=== PATIENT | female | born 1950 | race Hispanic/Latino ===

== ENCOUNTER 2017-10-24 21:32 | Inpatient (IN) | payer MEDICARE ==
[~2017-10-24] VITALS: Ht 160 cm; Wt 74.9 kg
[~2017-10-24 21:32] MED LIST: DIPHENHYDRAMINE HCL INJ 50 MG/ML VIAL IM ONE; FAMOTIDINE 20 MG/2 ML VIAL IV ONE; METHYLPREDNISOLONE SOD SUCC 125 MG/2ML VIAL IV ONE
[2017-10-24] MEDS ORDERED: TARON FORTE CA1 EACH PO (22:17)
[2017-10-24] MEDS ORDERED: CARVEDILOL3.125 MG PO (22:17)
[2017-10-24] MEDS ORDERED: HUMALOG100 UNIT/1 SC ×2 (22:17)
[2017-10-24] MEDS ORDERED: VANCOMYCIN HCL1 GM IV (22:17)
[2017-10-24] MEDS ORDERED: JENUVIA PO (22:17)
[2017-10-24] MEDS ORDERED: FAMOTIDINE 20 MG/2 ML VIAL IV ONE (22:30)
[2017-10-24] MEDS ORDERED: SODIUM CHLORIDE 0.9% 1000ML 1,000 ML ONE (22:30)
[2017-10-24] MEDS ORDERED: ACETAMINOPHEN 325 MG TAB PO ONE (22:30)
[2017-10-25] VITALS (7 sets, daily range): BP systolic 105–167; BP diastolic 52–75
[2017-10-25] MEDS ORDERED: VANCOMYCIN 1GM/NS 250 ML 250 ML IV SCH (00:15)
[2017-10-25] MEDS ORDERED: ONDANSETRON HCL INJ 2 MG/ML VIAL IV PRN (00:15)
[2017-10-25] MEDS: SODIUM CHLORIDE 0.9% 1000ML 1,000 ML IV SCH ×2 (02:10→08:10)
[2017-10-25] MEDS ORDERED: CEFEPIME HCL 2 GM VIAL IV SCH (06:00)
[2017-10-25] MEDS: ACETAMINOPHEN 325 MG TAB PO PRN ×2 (06:16→21:53)
[2017-10-25] MEDS ORDERED: INSULIN LISPRO 100 UNIT/1 ML 3ML VIAL SQ SCH ×2 (09:00→21:00)
[2017-10-25] MEDS: FAMOTIDINE 20 MG TAB PO SCH ×2 (09:02→18:03)
[2017-10-25] MEDS: SITAGLIPTIN 100 MG TAB PO SCH (09:03)
[2017-10-25] MEDS: CARVEDILOL 3.125 MG TAB PO SCH (09:15)
[2017-10-25] MEDS ORDERED: DEXTROSE 50% SYRINGE 50 ML IV PRN (12:45)
--- NOTE | 2017-10-25 16:01 | Diagnostic Imaging Report ---
EXAMINATION: CHEST 2 VIEWS INDICATION: \S\CONGESTION \S\[id number] \S\1525 COMPARISON: None FINDINGS: PA and lateral views TUBES and LINES: None. LUNGS: Lungs are well inflated. Lungs are clear. There is no evidence of pneumonia or pulmonary edema. PLEURA: No pleural effusion or pneumothorax. HEART AND MEDIASTINUM: The cardiomediastinal silhouette is unremarkable. BONES AND SOFT TISSUES: No acute osseous lesion. Soft tissues are unremarkable. UPPER ABDOMEN: No free air under the diaphragm. IMPRESSION: No acute thoracic abnormality. Signed by: DR. Gallo Hernandez MD on 10/25/2017 3:58 PM
--- NOTE | 2017-10-25 16:05 | Diagnostic Imaging Report ---
HAND 3+ VIEWS LEFT HISTORY: Left index finger infection. COMPARISON: None available. FINDINGS: Bones: No acute displaced fracture. Osseous alignment is within normal limits. Joints: The joint spaces are well-maintained. Soft tissues: Diffuse soft tissue swelling of the second digit. Calcifications project over the ulnocarpal joint space. IMPRESSION: Soft tissue swelling of the index finger without radiographic evidence of osteomyelitis. Recommend correlation with hand MRI. Signed by: DR. Gallo Hernandez MD on 10/25/2017 4:01 PM
--- NOTE | 2017-10-25 16:11 | Consultation ---
DATE OF CONSULTATION: October 25, 2017 INFECTIOUS DISEASE CONSULTATION I would like to thank Dr. Locke for this interesting consult. HISTORY OF PRESENTING ILLNESS: This is a very nice 67-year-old female with past medical history of diabetes mellitus, hypertension, hyperlipidemia, well known to me from the previous hospitalization secondary to right hand osteomyelitis, septic arthritis and infected wound. The patient is status post I\T\D and multiple debridements. She is currently using IV vancomycin and ertapenem at home, and patient most recently started on a new multivitamin and on the same day, according to the daughters at the bedside, the patient started having swelling and pain of the face and itchy rash all over the body, and 1 day before the hospital admission she started having fever and chills. So, for the concerns of sepsis, the patient has been admitted into the hospital and our service has been asked to evaluate and give recommendations. PAST MEDICAL HISTORY: Hypertension, hyperlipidemia, diabetes mellitus. PAST SURGICAL HISTORY: Multiple debridements of the hand. ALLERGIES: NO KNOWN DRUG ALLERGIES. FAMILY HISTORY: Noncontributory. SOCIAL HISTORY: Patient lives at home with family. She has a very strong support system. REVIEW OF SYSTEMS: All negative except for the ones in HPI. PHYSICAL EXAMINATION VITAL SIGNS: Temperature is 99.9 with a T-max of 101.7, respiratory rate is 20, heart rate is 85, blood pressure is 108/52. GENERALLY: This is a female sitting comfortably in bed. She looks in mild distress. HEENT: Face has swollen, and the eyes are closed and there is diffuse erythema on the face. SKIN: The patient has multiple petechial rashes and excoriations. CHEST: Clear to auscultation bilaterally. HEART: S1/S2 is normal. ABDOMEN: Soft, nontender. RIGHT HAND: Does not have any open wounds. There is some swelling at the 2nd metacarpophalangeal joint. There is no drainage. NEUROLOGICALLY: Alert and oriented x3. LABS: Reviewed. ASSESSMENT AND PLAN: This is a female with past medical history of diabetes mellitus, hypertension, hyperlipidemia, who has been admitted with fever and chills. I am concerned that the patient is having allergic reaction secondary to newly started multivitamins; so, will hold it off. The patient also has a PICC line that has surrounding erythema; so, there are some concerns about line infection. The PICC line has been removed, and it has been sent for cultures. Will check blood cultures x2. Will start the patient on IV vancomycin and cefepime. Patient needs some evaluation by the surgery department for any possible drainage or chances of infection. Will continue the patient on these current antibiotics and will check CBC, CMP and vancomycin levels in the body and will follow this patient very closely with you. Thank you for letting me participate in the care of your patient. Job#: [id number] EV
[2017-10-25] MEDS: INSULIN LISPRO 100 UNIT/1 ML 3ML VIAL SQ SCH ×2 (16:30→21:54)
[2017-10-25 16:53] LABS: BASOPHILS % 0.1 % (0.0-1.0); EOSINOPHILS # (AUTO) 1.2 (0.0-0.4); EOSINOPHILS % 13.2 % (0.0-6.0); HEMOGLOBIN 9.6 g/dL (12.0-16.0); LYMPHOCYTES # (AUTO) 0.9 (1.0-3.2); LYMPHOCYTES % 9.9 % (18.0-39.1); MEAN CORPUSCULAR HEMOGLOBIN 30.2 pg (28-32); MEAN CORPUSCULAR HGB CONC 33.1 g/dL (31-35); MEAN CORPUSCULAR VOLUME 91.2 fL (81-99); MONOCYTES # (AUTO) 0.7 (0.2-0.8); MONOCYTES % 7.4 % (4.4-11.3); NEUTROPHILS # (AUTO) 6.4 (2.1-6.9); NEUTROPHILS % 68.9 % (38.7-80.0); PLATELET COUNT 183 x10e3/uL (140-360); RED BLOOD COUNT 3.18 x10e6/uL (3.6-5.1); RED CELL DISTRIBUTION WIDTH 13.2 % (11.7-14.4)
[2017-10-25] MEDS ORDERED: SODIUM CHLORIDE 0.9% 1000ML 1,000 ML IV ONE (17:00)
[2017-10-25 17:03] LABS: INR 1.39
[2017-10-25 17:04] LABS: PARTIAL THROMBOPLASTIN TIME 35.8 seconds (23.8-35.5)
[2017-10-25 17:13] LABS: ALBUMIN 2.8 g/dL (3.5-5.0); ALBUMIN/GLOBULIN RATIO 0.8 (0.8-2.0); ANION GAP 13.2 mmol/L (8-16); CREATININE, SERUM 1.8 mg/dL (0.57-1.11); POTASSIUM 4.2 mmol/L (3.5-5.1)
[2017-10-25] MEDS ORDERED: MEROPENEM 500MG 500 MG in SODIUM CHLORIDE 0.9% 50ML 50 ML IV SCH (18:00)
[2017-10-25] MEDS: MEROPENEM 500 MG VIAL IV SCH (18:10)
[2017-10-25 18:32] LABS: BILIRUBIN,URINE NEGATIVE (NEGATIVE); COLOR,URINE YELLOW (YELLOW); KETONES,URINE NEGATIVE (NEGATIVE); LEUKOCYTE ESTERASE ,URINE TRACE (NEGATIVE); NITRITE,URINE NEGATIVE (NEGATIVE); URINE UROBILINOGEN 0.2 mg/dL (0.2 - 1)
[2017-10-25 18:40] LABS: CLARITY,URINE SL CLOUDY (CLEAR); PROTEIN,URINE DIPSTICK 2+ (NEGATIVE)
[2017-10-25 18:45] LABS: AMORPHOUS SEDIMENT,URINE MODERATE (FEW); BACTERIA,URINE FEW /HPF; EPITHELIAL CELLS,URINE MODERATE /LPF; MUCUS,URINE FEW (RARE); RBC,URINE 0-5 /HPF (0-5)
[2017-10-25] MEDS: DAPTOMYCIN 400 MG in SODIUM CHLORIDE 0.9% 100 ML IV SCH (20:48)
[2017-10-26] VITALS (7 sets, daily range): BP systolic 111–180; BP diastolic 61–91
[2017-10-26] MEDS: HYDROXYZINE HCL 25 MG TAB PO PRN ×3 (00:15→18:48)
[2017-10-26] MEDS: MEROPENEM 500 MG VIAL IV SCH ×4 (00:32→18:47)
[2017-10-26 06:26] LABS: BASOPHILS % 0.2 % (0.0-1.0); EOSINOPHILS # (AUTO) 0.3 (0.0-0.4); EOSINOPHILS % 2.4 % (0.0-6.0); HEMATOCRIT 29.3 % (34.2-44.1); HEMOGLOBIN 9.6 g/dL (12.0-16.0); LYMPHOCYTES # (AUTO) 0.9 (1.0-3.2); LYMPHOCYTES % 7.7 % (18.0-39.1); MEAN CORPUSCULAR HEMOGLOBIN 30.2 pg (28-32); MEAN CORPUSCULAR HGB CONC 32.8 g/dL (31-35); MEAN CORPUSCULAR VOLUME 92.1 fL (81-99); MONOCYTES # (AUTO) 0.3 (0.2-0.8); MONOCYTES % 2.7 % (4.4-11.3); NEUTROPHILS # (AUTO) 9.6 (2.1-6.9); NEUTROPHILS % 86.2 % (38.7-80.0); PLATELET COUNT 219 x10e3/uL (140-360); RED BLOOD COUNT 3.18 x10e6/uL (3.6-5.1); RED CELL DISTRIBUTION WIDTH 13.3 % (11.7-14.4)
[2017-10-26 06:43] LABS: ALBUMIN 2.8 g/dL (3.5-5.0); ALBUMIN/GLOBULIN RATIO 0.8 (0.8-2.0); ANION GAP 13.1 mmol/L (8-16); CALCIUM 8.2 mg/dL (8.4-10.2); CREATININE, SERUM 1.63 mg/dL (0.57-1.11); POTASSIUM 4.1 mmol/L (3.5-5.1)
[2017-10-26] MEDS: CARVEDILOL 3.125 MG TAB PO SCH (10:19)
[2017-10-26] MEDS: FAMOTIDINE 20 MG TAB PO SCH ×2 (10:19→18:11)
[2017-10-26] MEDS: SITAGLIPTIN 100 MG TAB PO SCH (10:19)
[2017-10-26] MEDS: INSULIN LISPRO 100 UNIT/1 ML 3ML VIAL SQ SCH ×4 (10:21→20:33)
[2017-10-26] MEDS: DAPTOMYCIN 400 MG in SODIUM CHLORIDE 0.9% 100 ML IV SCH (18:10)
[2017-10-26] MEDS: ACETAMINOPHEN 325 MG TAB PO PRN (18:49)
[2017-10-27] VITALS (8 sets, daily range): BP systolic 128–169; BP diastolic 60–76
[2017-10-27] MEDS: MEROPENEM 500 MG VIAL IV SCH ×2 (00:04→05:30)
[2017-10-27] MEDS: ACETAMINOPHEN 325 MG TAB PO PRN (01:19)
[2017-10-27] MEDS: HYDROXYZINE HCL 25 MG TAB PO PRN (03:44)
[2017-10-27 07:16] LABS: BASOPHILS % 0.1 % (0.0-1.0); EOSINOPHILS # (AUTO) 3.3 (0.0-0.4); HEMATOCRIT 29.8 % (34.2-44.1); HEMOGLOBIN 9.9 g/dL (12.0-16.0); LYMPHOCYTES # (AUTO) 1.1 (1.0-3.2); LYMPHOCYTES % 6.2 % (18.0-39.1); MEAN CORPUSCULAR HEMOGLOBIN 30.5 pg (28-32); MEAN CORPUSCULAR HGB CONC 33.2 g/dL (31-35); MEAN CORPUSCULAR VOLUME 91.7 fL (81-99); MONOCYTES # (AUTO) 0.7 (0.2-0.8); MONOCYTES % 4.2 % (4.4-11.3); NEUTROPHILS # (AUTO) 12.1 (2.1-6.9); NEUTROPHILS % 69.8 % (38.7-80.0); PLATELET COUNT 239 x10e3/uL (140-360); RED BLOOD COUNT 3.25 x10e6/uL (3.6-5.1); RED CELL DISTRIBUTION WIDTH 13.5 % (11.7-14.4)
[2017-10-27] MEDS: FAMOTIDINE 20 MG TAB PO SCH ×2 (07:30→17:30)
[2017-10-27] MEDS: INSULIN LISPRO 100 UNIT/1 ML 3ML VIAL SQ SCH ×4 (07:30→21:30)
[2017-10-27 08:15] LABS: ALBUMIN 2.1 g/dL (3.5-5.0); ALBUMIN/GLOBULIN RATIO 0.8 (0.8-2.0); ANION GAP 12.7 mmol/L (8-16); CREATININE, SERUM 1.35 mg/dL (0.57-1.11); POTASSIUM 3.7 mmol/L (3.5-5.1)
[2017-10-27] MEDS: SITAGLIPTIN 100 MG TAB PO SCH (08:30)
--- NOTE | 2017-10-27 08:37 | Diagnostic Imaging Report ---
TECHNIQUE: Magnetic resonance imaging of the LEFT HAND was performed WITHOUT injected contrast. HISTORY: Left index finger infection, diabetes COMPARISON: Left hand radiographs October 25, 2017. FINDINGS: Motion artifact partially limits sensitivity and specificity of the exam. BONES: No focal or infiltrative bone marrow replacing abnormalities identified. No acute fracture or osteonecrosis. JOINTS: No dislocation or joint effusion. SOFT TISSUES: Moderate diffuse soft tissue edema. No fluid collections. IMPRESSION: 1. Diffuse nonspecific regional soft tissue edema, compatible with cellulitis. 2. No drainable abscess or osteomyelitis. Signed by: Dr. Gato Amador D.O., M.M.M. on 10/27/2017 8:34 AM
[2017-10-27] MEDS: CARVEDILOL 3.125 MG TAB PO SCH (09:00)
[2017-10-27 09:44] LABS: BAND NEUTROPHILS % (MANUAL) 3 %; EOSINOPHILS % (MANUAL) 15 % (0-7); LYMPHOCYTES % (MANUAL) 4 % (19-48); MONOCYTES % (MANUAL) 7 % (3.4-9.0); NEUTROPHILS % (MANUAL) 71 % (40-74)
[2017-10-27 09:46] LABS: HYPOCHROMASIA SLIGHT; POLYCHROMASIA FEW; RBC MORPHOLOGY COMMENT NORMAL
[2017-10-27 09:47] LABS: ANISOCYTOSIS SLIGHT; HOWELL-JOLLY BODIES FEW; PLATELET ESTIMATE ADEQUATE; PLATELET MORPHOLOGY COMMENT NORMAL
[2017-10-27 09:57] LABS: CALCIUM 6.5 mg/dL (8.4-10.2)
[2017-10-27] MEDS: METHYLPREDNISOLONE SOD SUCC 125 MG/2ML VIAL IV SCH (10:45)
[2017-10-27] MEDS ORDERED: DIPHENHYDRAMINE HCL INJ 50 MG/ML VIAL IV PRN (10:45)
[2017-10-27] MEDS ORDERED: MINERAL OIL/PETROLAT/GLYCERI 6OZ BTL TOP PRN (12:15)
[2017-10-27] MEDS: HYDROXYZINE HCL 25 MG TAB PO SCH ×2 (15:19→21:30)
[2017-10-27] MEDS: DIPHENHYDRAMINE HCL INJ 50 MG/ML VIAL IV SCH (21:30)
[2017-10-27] MEDS: INSULIN DETEMIR 100 UNIT/ML PEN SQ SCH (21:30)
[2017-10-28 03:53] VITALS: BP 148/67
[2017-10-28] MEDS ORDERED: DEXTROSE 50% SYRINGE 50 ML IV PRN (05:00)
[2017-10-28 06:33] LABS: BASOPHILS % 0.2 % (0.0-1.0); EOSINOPHILS # (AUTO) 0.2 (0.0-0.4); EOSINOPHILS % 0.8 % (0.0-6.0); HEMATOCRIT 27.9 % (34.2-44.1); HEMOGLOBIN 9.2 g/dL (12.0-16.0); LYMPHOCYTES # (AUTO) 1.6 (1.0-3.2); LYMPHOCYTES % 8.2 % (18.0-39.1); MEAN CORPUSCULAR HEMOGLOBIN 30.1 pg (28-32); MEAN CORPUSCULAR VOLUME 91.2 fL (81-99); MONOCYTES # (AUTO) 0.6 (0.2-0.8); MONOCYTES % 3.2 % (4.4-11.3); NEUTROPHILS # (AUTO) 17.2 (2.1-6.9); NEUTROPHILS % 86.8 % (38.7-80.0); PLATELET COUNT 239 x10e3/uL (140-360); RED BLOOD COUNT 3.06 x10e6/uL (3.6-5.1); RED CELL DISTRIBUTION WIDTH 13.5 % (11.7-14.4)
[2017-10-28 06:53] LABS: ANION GAP 14.4 mmol/L (8-16); CALCIUM 8.5 mg/dL (8.4-10.2); CREATININE, SERUM 1.64 mg/dL (0.57-1.11); POTASSIUM 4.4 mmol/L (3.5-5.1)
[2017-10-28] MEDS: INSULIN LISPRO 100 UNIT/1 ML 3ML VIAL SQ SCH ×4 (07:30→21:00)
[2017-10-28] MEDS: FAMOTIDINE 20 MG TAB PO SCH ×2 (07:30→16:30)
[2017-10-28 07:36] VITALS: BP 180/90
[2017-10-28] MEDS: INSULIN DETEMIR 100 UNIT/ML PEN SQ SCH ×2 (09:00→21:00)
[2017-10-28] MEDS: DIPHENHYDRAMINE HCL INJ 50 MG/ML VIAL IV SCH ×2 (09:00→21:00)
[2017-10-28] MEDS: METHYLPREDNISOLONE SOD SUCC 125 MG/2ML VIAL IV SCH (09:00)
[2017-10-28] MEDS: HYDROXYZINE HCL 25 MG TAB PO SCH ×3 (09:00→21:00)
[2017-10-28] MEDS: CARVEDILOL 3.125 MG TAB PO SCH (09:00)
[2017-10-28] MEDS ORDERED: METHYLPREDNISOLONE SOD SUCC 125 MG/2ML VIAL IV SCH (09:00)
[2017-10-28 11:46] VITALS: BP 200/85
--- NOTE | 2017-10-28 12:45 | Diagnostic Imaging Report ---
Procedure: Temporary central venous catheter placement. Indication: Need for short-term central venous access. Comparison: None. Discussion: The risks and benefits of the procedure were discussed with the patient. Questions were answered. An informed consent was obtained. The patient was placed supine on the angiographic table. A focused sonographic evaluation of the neck demonstrated a patent and compressible right internal jugular vein. The right neck was prepped and draped in the usual sterile fashion. Utilizing ultrasound guidance, a 21-gauge needle was inserted into the right internal jugular vein. A 0.018 inch wire was advanced centrally under fluoroscopic guidance. An access sheath was placed over the wire to secure the access. The wire was up sized to a 0.035 inch wire. A 0.035 inch wire was advanced into the right atrium and then into the inferior vena cava for stability. A single dilation was performed over the wire. A temporary central venous catheter was advanced over the wire. The wire was removed. The catheter tip of the triple lumen catheter was positioned within the right atrium. The 3 ports demonstrated proper function with aspiration and flush. The lumens were flushed with sterile saline. The lumens were infused with heparin solution. The catheter was secured to the skin with 3-0 Ethilon suture. A sterile dressing was applied. There were no complications and the patient tolerated the procedure well. The patient was transferred to the postprocedure area in stable unchanged condition for further monitoring. Impression: Successful placement of right internal jugular temporary central venous catheter utilizing ultrasound and fluoroscopic guidance. Signed by: Dr. Zaki Pratt M.D. on 10/28/2017 12:41 PM
[2017-10-28 15:23] VITALS: BP 153/65
[2017-10-28 20:00] VITALS: BP 187/72
[2017-10-28 22:06] VITALS: BP 153/65
[2017-10-29] VITALS (7 sets, daily range): BP systolic 156–185; BP diastolic 68–98
[2017-10-29] MEDS: INSULIN LISPRO 100 UNIT/1 ML 3ML VIAL SQ SCH ×4 (07:30→21:00)
[2017-10-29] MEDS: FAMOTIDINE 20 MG TAB PO SCH ×2 (09:41→16:54)
[2017-10-29] MEDS: METHYLPREDNISOLONE SOD SUCC 125 MG/2ML VIAL IV SCH (09:42)
[2017-10-29] MEDS: INSULIN DETEMIR 100 UNIT/ML PEN SQ SCH ×2 (09:42→21:00)
[2017-10-29] MEDS: DIPHENHYDRAMINE HCL INJ 50 MG/ML VIAL IV SCH ×2 (09:42→21:06)
[2017-10-29] MEDS: CARVEDILOL 3.125 MG TAB PO SCH (09:42)
[2017-10-29] MEDS: HYDROXYZINE HCL 25 MG TAB PO SCH ×3 (09:42→21:06)
[2017-10-29 09:59] LABS: BASOPHILS # (AUTO) 0.1 (0.0-0.1); BASOPHILS % 0.2 % (0.0-1.0); EOSINOPHILS # (AUTO) 4.8 (0.0-0.4); EOSINOPHILS % 16.6 % (0.0-6.0); HEMATOCRIT 28.5 % (34.2-44.1); HEMOGLOBIN 9.6 g/dL (12.0-16.0); LYMPHOCYTES # (AUTO) 2.7 (1.0-3.2); LYMPHOCYTES % 9.1 % (18.0-39.1); MEAN CORPUSCULAR HEMOGLOBIN 30.3 pg (28-32); MEAN CORPUSCULAR HGB CONC 33.7 g/dL (31-35); MEAN CORPUSCULAR VOLUME 89.9 fL (81-99); MONOCYTES # (AUTO) 1.6 (0.2-0.8); MONOCYTES % 5.3 % (4.4-11.3); NEUTROPHILS # (AUTO) 19.5 (2.1-6.9); NEUTROPHILS % 67.2 % (38.7-80.0); PLATELET COUNT 274 x10e3/uL (140-360); RED BLOOD COUNT 3.17 x10e6/uL (3.6-5.1); RED CELL DISTRIBUTION WIDTH 13.4 % (11.7-14.4)
[2017-10-29 10:11] LABS: ALBUMIN 2.9 g/dL (3.5-5.0); ALBUMIN/GLOBULIN RATIO 0.9 (0.8-2.0); CALCIUM 8.7 mg/dL (8.4-10.2); CREATININE, SERUM 1.4 mg/dL (0.57-1.11)
[2017-10-29 10:19] LABS: BAND NEUTROPHILS % (MANUAL) 1 %; EOSINOPHILS % (MANUAL) 16 % (0-7); LYMPHOCYTES % (MANUAL) 8 % (19-48); MONOCYTES % (MANUAL) 3 % (3.4-9.0); NEUTROPHILS % (MANUAL) 72 % (40-74); PLATELET ESTIMATE ADEQUATE; PLATELET MORPHOLOGY COMMENT NORMAL; RBC MORPHOLOGY COMMENT NORMAL
[2017-10-29] MEDS: METHYLPREDNISOLONE SOD SUCC 40 MG/ML VIAL IV SCH (21:06)
[2017-10-30] VITALS (7 sets, daily range): BP systolic 162–188; BP diastolic 73–98
[2017-10-30] MEDS: DIPHENHYDRAMINE HCL INJ 50 MG/ML VIAL IV SCH ×2 (09:57→21:51)
[2017-10-30] MEDS: CARVEDILOL 3.125 MG TAB PO SCH (09:57)
[2017-10-30] MEDS: FAMOTIDINE 20 MG TAB PO SCH ×2 (09:57→17:04)
[2017-10-30] MEDS: HYDROXYZINE HCL 25 MG TAB PO SCH ×3 (09:57→21:51)
[2017-10-30] MEDS: METHYLPREDNISOLONE SOD SUCC 40 MG/ML VIAL IV SCH ×2 (09:57→21:51)
[2017-10-30] MEDS: INSULIN DETEMIR 100 UNIT/ML PEN SQ SCH ×2 (09:58→21:58)
[2017-10-30] MEDS: INSULIN LISPRO 100 UNIT/1 ML 3ML VIAL SQ SCH ×4 (09:58→21:58)
[2017-10-30 11:56] LABS: BASOPHILS % 0.1 % (0.0-1.0); EOSINOPHILS # (AUTO) 1.4 (0.0-0.4); EOSINOPHILS % 6.6 % (0.0-6.0); HEMATOCRIT 28.5 % (34.2-44.1); HEMOGLOBIN 9.5 g/dL (12.0-16.0); LYMPHOCYTES # (AUTO) 2.8 (1.0-3.2); LYMPHOCYTES % 13.6 % (18.0-39.1); MEAN CORPUSCULAR HEMOGLOBIN 30.2 pg (28-32); MEAN CORPUSCULAR HGB CONC 33.3 g/dL (31-35); MEAN CORPUSCULAR VOLUME 90.5 fL (81-99); MONOCYTES # (AUTO) 1.3 (0.2-0.8); MONOCYTES % 6.2 % (4.4-11.3); NEUTROPHILS # (AUTO) 14.7 (2.1-6.9); NEUTROPHILS % 71.4 % (38.7-80.0); PLATELET COUNT 259 x10e3/uL (140-360); RED BLOOD COUNT 3.15 x10e6/uL (3.6-5.1); RED CELL DISTRIBUTION WIDTH 13.5 % (11.7-14.4)
[2017-10-30 13:58] LABS: ANISOCYTOSIS SLIGHT; EOSINOPHILS % (MANUAL) 1 % (0-7); HYPOCHROMASIA MODERATE; LYMPHOCYTES % (MANUAL) 11 % (19-48); METAMYELOCYTES % (MANUAL) 1 % (0-0); MONOCYTES % (MANUAL) 10 % (3.4-9.0); MYELOCYTES % (MANUAL) 1 % (0-0); NEUTROPHILS % (MANUAL) 71 % (40-74); NUCLEATED RED BLOOD CELLS 1; PLATELET ESTIMATE ADEQUATE; PLATELET MORPHOLOGY COMMENT NORMAL; RBC MORPHOLOGY COMMENT NORMAL
[2017-10-30] MEDS: CLONIDINE HCL 0.2 MG TAB PO PRN (21:57)
[2017-10-31] VITALS: BP 197/81
[2017-10-31 04:00] VITALS: BP 180/100
[2017-10-31] MEDS: CLONIDINE HCL 0.2 MG TAB PO PRN (05:01)
[2017-10-31 07:23] LABS: BASOPHILS % 0.3 % (0.0-1.0); EOSINOPHILS # (AUTO) 1.2 (0.0-0.4); EOSINOPHILS % 8.2 % (0.0-6.0); HEMATOCRIT 28.3 % (34.2-44.1); HEMOGLOBIN 9.3 g/dL (12.0-16.0); LYMPHOCYTES # (AUTO) 2.9 (1.0-3.2); LYMPHOCYTES % 20.4 % (18.0-39.1); MEAN CORPUSCULAR HEMOGLOBIN 29.9 pg (28-32); MEAN CORPUSCULAR HGB CONC 32.9 g/dL (31-35); MONOCYTES # (AUTO) 0.8 (0.2-0.8); MONOCYTES % 5.9 % (4.4-11.3); NEUTROPHILS # (AUTO) 8.8 (2.1-6.9); PLATELET COUNT 253 x10e3/uL (140-360); RED BLOOD COUNT 3.11 x10e6/uL (3.6-5.1); RED CELL DISTRIBUTION WIDTH 13.4 % (11.7-14.4)
[2017-10-31 07:55] VITALS: BP 173/82
[2017-10-31 08:11] LABS: ANION GAP 12.9 mmol/L (8-16); CALCIUM 8.3 mg/dL (8.4-10.2); CREATININE, SERUM 1.16 mg/dL (0.57-1.11); POTASSIUM 4.9 mmol/L (3.5-5.1)
[2017-10-31 08:15] VITALS: BP 173/82
[2017-10-31] MEDS: INSULIN DETEMIR 100 UNIT/ML PEN SQ SCH (08:22)
[2017-10-31] MEDS: INSULIN LISPRO 100 UNIT/1 ML 3ML VIAL SQ SCH ×3 (08:22→16:20)
[2017-10-31] MEDS: HYDROXYZINE HCL 25 MG TAB PO SCH ×2 (08:22→16:20)
[2017-10-31] MEDS: METHYLPREDNISOLONE SOD SUCC 40 MG/ML VIAL IV SCH (08:22)
[2017-10-31] MEDS: FAMOTIDINE 20 MG TAB PO SCH ×2 (08:22→16:20)
[2017-10-31] MEDS: DIPHENHYDRAMINE HCL INJ 50 MG/ML VIAL IV SCH (08:22)
[2017-10-31] MEDS: CARVEDILOL 3.125 MG TAB PO SCH (08:22)
[2017-10-31] MEDS ORDERED: AMLODIPINE BESYLATE 5 MG TAB PO SCH (09:00)
[2017-10-31 10:22] LABS: EOSINOPHILS % (MANUAL) 11 % (0-7); LYMPHOCYTES % (MANUAL) 9 % (19-48); MONOCYTES % (MANUAL) 2 % (3.4-9.0); NEUTROPHILS % (MANUAL) 78 % (40-74); PLATELET ESTIMATE ADEQUATE; PLATELET MORPHOLOGY COMMENT NORMAL; RBC MORPHOLOGY COMMENT NORMAL
[2017-10-31 11:53] VITALS: BP 151/73
[2017-10-31 16:00] VITALS: BP 143/72
--- NOTE | 2017-10-31 16:09 | Discharge Summary ---
This is a 67-year-old female with a past medical history positive for hypertension, diabetes, hyperlipidemia. Patient is status post incision and drainage from right hand osteomyelitis. She is on IV vancomycin and ertapenem at home. Apparently she started having swelling and pain in the face and itching and rash all over 1 day before the hospital admission. Patient seems to have an allergic reaction. She is off the antibiotic right now, and Dr. Diego, infectious disease specialist, has seen the patient from the infectious disease point of view. She thinks that she is allergic to the multivitamin which she just started taking. The PICC line has been removed because of concern about infections. Patient was started on IV antibiotics, which are vancomycin and cefepime. Urine culture has been ordered. Then down the line, the antibiotic was discontinued since there was no evidence of infection in the blood as per Dr. Diego. Patient is going home today. The blood pressure was very high yesterday. We started Norvasc, and the blood pressure is much better today. She is going home today. Dr. Diego, infectious disease specialist, has released her to go home also. On the physical exam, the heart shows regular rhythm, normal S1 and S2 sounds. Lungs are clear bilaterally. Abdomen is soft. Extremities show no evidence of cyanosis, edema or trauma. On the vital signs, blood pressure is 151/73. Temperature 96.9. Heart rate 65 per minute. Respiratory rate is 18 per minute. Oxygen saturation is 97%. On blood work, BMP showed sodium 137, potassium 4.9, chloride 104, CO2 25, BUN 31, creatinine 1.16, glucose 284. CBC: White blood count 13.9, hemoglobin 9.3, hematocrit 28.3, platelet count 253,000. PT 16.0, INR 1.39, PTT 35.8. AST 25, AST 44, total bilirubin 0.4, alkaline phosphatase 70. FINAL IMPRESSION 1. Uncontrolled hypertension. 2. Allergic severe reaction apparently to vitamin. 3. Hypertension with hypertensive nephropathy. 4. Diabetes mellitus, type 2, with diabetic nephropathy. 5. Status post hand infection. Patient will continue with: 1. Carvedilol 6.25 mg daily. 2. Norvasc 5 mg daily. 3. Januvia 100 mg daily. 4. Levemir 20 units at bedtime. 5. Continue Levemir 10 units in the morning. Follow up with her primary care physician in a week. Diet: Diabetic and renal diet. JEANNA MATT MD Job#: [id number] MH
== END 2017-10-31 16:36 | disposition home or self-care (01) | DRG 314 ==
LOC: FSED 21:32 → IMCU 10-25 01:07 → MED/SURG3 10-26 20:07
PROC: 02HV33Z Insertion of Infusion Device into Superior Vena Cava, Percutaneous Approach (ICD-10-PCS; principal; 2017-10-25)
DX: T80.211A Bloodstream infection due to central venous catheter, initial encounter (principal); A41.9 Sepsis, unspecified organism; E11.21 Type 2 diabetes mellitus with diabetic nephropathy; N18.3 Chronic kidney disease, stage 3 (moderate); L03.114 Cellulitis of left upper limb; T78.3XXA Angioneurotic edema, initial encounter; T45.2X5A Adverse effect of vitamins, initial encounter; Z79.4 Long term (current) use of insulin; E11.22 Type 2 diabetes mellitus with diabetic chronic kidney disease; I12.9 Hypertensive chronic kidney disease with stage 1 through stage 4 chronic kidney disease, or unspecified chronic kidney disease; D72.829 Elevated white blood cell count, unspecified; T38.0X5A Adverse effect of glucocorticoids and synthetic analogues, initial encounter
CPT/HCPCS: 36415; 36556; 71046; 74470; 76937; 77001; 80048; 80053; 81001; 82947; 82948; 83605; 85025; 85610; 85651; 85730; 86140; 87040; 87070; 87086; 87400; 96367; 96372; 96374; 96376; 99283; C1751; J0692; J1200; J2185; J2920; J2930; J3370; J3410; J7030; J7050

== ENCOUNTER 2017-11-02 14:34 | Inpatient (IN) | payer MEDICARE ==
[~2017-11-02] VITALS: Ht 160 cm; Wt 87.1 kg
[~2017-11-02 14:34] MED LIST changes: +CARVEDILOL3.125 MG PO; -DIPHENHYDRAMINE HCL INJ 50 MG/ML VIAL IM ONE; -FAMOTIDINE 20 MG/2 ML VIAL IV ONE; +HUMALOG100 UNIT/1 SC; +JENUVIA PO; -METHYLPREDNISOLONE SOD SUCC 125 MG/2ML VIAL IV ONE; +TARON FORTE CA1 EACH PO; +VANCOMYCIN HCL1 GM IV
--- OUTSIDE RECORDS SUMMARY | 2017-11-02 14:37 | XMS REPORT ---
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 Allergies, Adverse Reactions, Alerts This patient has no known allergies or adverse reactions. Medications This patient has no known medications. Results Test Description Test Time Test Comments Text Results Atomic Results Result Comments NON-TUNNELLED CVC CATH PLACMNT [place] [address] Patient Name: SHAY MORALES MR #: [id number] : 1950 Age/Sex: 67/F Req #: [id number] [facility] Physician: CHERI ARTEAGA MD Ordered by : BRANDI DOUGLAS MD Report #: [id number] Location: [facility]/SURG Room/Bed: [facility] Procedure: [id number] IR/NON-TUNNELLED CVC CATH PLACMNT Exam Date: 10/25/17 Exam Time: 1930 REPORT STATUS: Signed Procedure: Temporary central venous catheter placement. Indication: Need for short-term central venous access. Comparison: None. Discussion: The risks and benefits of the procedure were discussed with the patient. Questions were answered. An informed consent was obtained. The patient was placed supine on the angiographic table. A focused sonographic evaluation of the neck demonstrated a patent and compressible right internal jugular vein. The right neck was prepped and draped in the usual sterile fashion. Utilizing ultrasound guidance, a 21-gauge needle was inserted into the right internal jugular vein. A 0.018 inch wire was advanced centrally under fluoroscopic guidance. An access sheath was placed over the wire to secure the access. The wire was up sized to a 0.035 inch wire. A 0.035 inch wire was advanced into the right atrium and then into the inferior vena cava for stability. A single dilation was performed over the wire. A temporary central venous catheter was advanced over the wire. The wire was removed. The catheter tip of the triple lumen catheter was positioned within the right atrium. The 3 ports demonstrated proper function with aspiration and flush. The lumens were flushed with sterile saline. The lumens were infused with heparin solution. The catheter was secured to the skin with 3-0 Ethilon suture. A sterile dressing was applied. There were no complications and the patient tolerated the procedure well. The patient was transferred to the postprocedure area in stable unchanged condition for further monitoring. Impression: Successful placement of right internal jugular temporary central venous catheter utilizing ultrasound and fluoroscopic guidance. Signed by: Dr. Denisa Nuñez M.D. on 10/28/2017 12:41 PM Dictated By: DENISA NUÑEZ MD 1241 Transcribed By: HALEIGH on 10/28/17 1241 COPY TO: BRANDI DOUGLAS MD IR CONSULT [place] [address] Patient Name: SHAY MORALES MR #: [id number] : 1950 Age/Sex: 67/F Req #: [id number] Adm Physician: CHERI ARTEAGA MD Ordered by: BRANDI DOUGLAS MD Report #: [id number] Location: MED/SURG3 Room/Bed: [facility] _ Procedure: [id number] DX/IR CONSULT Exam Date: Exam Time: REPORT STATUS: Signed Procedure: Temporary central venous catheter placement. Indication: Need for short- term central venous access. Comparison: None. Discussion: The risks and benefits of the procedure were discussed with the patient. Questions were answered. An informed consent was obtained. The patient was placed supine on the angiographic table. A focused sonographic evaluation of the neck demonstrated a patent and compressible right internal jugular vein. The right neck was prepped and draped in the usual sterile fashion. Utilizing ultrasound guidance, a 21-gauge needle was inserted into the right internal jugular vein. A 0.018 inch wire was advanced centrally under fluoroscopic guidance. An access sheath was placed over the wire to secure the access. The wire was up sized to a 0.035 inch wire. A 0.035 inch wire was advanced into the right atrium and then into the inferior vena cava for stability. A single dilation was performed over the wire. A temporary central venous catheter was advanced over the wire. The wire was removed. The catheter tip of the triple lumen catheter was positioned within the right atrium. The 3 ports demonstrated proper function with aspiration and flush. The lumens were flushed with sterile saline. The lumens were infused with heparin solution. The catheter was secured to the skin with 3-0 Ethilon suture. A sterile dressing was applied. There were no complications and the patient tolerated the procedure well. The patient was transferred to the postprocedure area in stable unchanged condition for further monitoring. Impression: Successful placement of right internal jugular temporary central venous catheter utilizing ultrasound and fluoroscopic guidance. Signed by : Dr. Denisa Nuñez M.D. on 10/28/2017 12:41 PM Dictated By: DENISA NUÑEZ MD 1241 Transcribed By: HALEIGH on 10/28/17 1241 COPY TO: BRANDI DOUGLAS MD HAND 3+ VIEWS LEFT [place] [address] Patient Name: SHAY MORALSE MR #: [id number] : 1950 Age/Sex: 67/F Req #: [id number] Adm Physician: CHERI ARTEAGA MD Ordered by: HAROON PATEL MD Report #: [id number] Location: [facility] Room/Bed: [facility] 198-1 Procedure: [id number] DX/HAND 3+ VIEWS LEFT Exam Date : 10/25/17 Exam Time: 1525 REPORT STATUS: Signed HAND 3+ VIEWS LEFT HISTORY: Left index finger infection. COMPARISON: None available. FINDINGS: Bones: No acute displaced fracture. Osseous alignment is within normal limits. Joints: The joint spaces are well-maintained. Soft tissues: Diffuse soft tissue swelling of the second digit. Calcifications project over the ulnocarpal joint space. IMPRESSION: Soft tissue swelling of the index finger without radiographic evidence of osteomyelitis. Recommend correlation with hand MRI. Signed by: DR. Gallo Sanchez MD on 10/25/2017 4:01 PM Dictated By: GALLO SANCHEZ MD 1601 COPY TO: HAROON PATEL MD MRI HAND LEFT [place] [address] Patient Name: SHAY MORALES MR #: [id number] : 1950 Age/Sex: 67/F Req #: [id number] Adm Physician: CHERI ARTEAGA MD Ordered by: HAROON PATEL MD Report #: [id number] Location: MED/SURG3 Room/Bed: 299-1 Procedure: MRI/MRI HAND LEFT WO Exam Date : Exam Time: REPORT STATUS: Signed TECHNIQUE: Magnetic resonance imaging of the LEFT HAND was performed WITHOUT injected contrast. HISTORY: Left index finger infection, diabetes COMPARISON: Left hand radiographs October 25, 2017. FINDINGS: Motion artifact partially limits sensitivity and specificity of the exam. BONES: No focal or infiltrative bone marrow replacing abnormalities identified. No acute fracture or osteonecrosis. JOINTS: No dislocation or joint effusion. SOFT TISSUES: Moderate diffuse soft tissue edema. No fluid collections. IMPRESSION: 1. Diffuse nonspecific regional soft tissue edema, compatible with cellulitis. 2. No drainable abscess or osteomyelitis. Signed by: Dr. Elisha Amador D.O., M.M.M. on 10/27/2017 8:34 AM Dictated By: ELISHA AMADOR DO 3 Transcribed By: HALEIGH on 10/27/17833 COPY TO: HAROON PATEL MD CHEST 2 [place] [address] Patient Name: SHAY MORALES MR #: [id number] : 1950 Age/Sex: 67/F Req #: [id number] Adm Physician: CHERI ARTEAGA MD Ordered by: CHERI ARTEAGA MD Report #: [id number] Location: [facility] Room/Bed: [facility] 198-1 Procedure: DX/CHEST 2 VIEWS Exam Date: Exam Time: 1525 REPORT STATUS: Signed EXAMINATION: CHEST 2 VIEWS INDICATION: COMPARISON : None FINDINGS: PA and lateral views TUBES and LINES: None. LUNGS: Lungs are well inflated. Lungs are clear. There is no evidence of pneumonia or pulmonary edema. PLEURA: No pleural effusion or pneumothorax. HEART AND MEDIASTINUM: The cardiomediastinal silhouette is unremarkable. BONES AND SOFT TISSUES: No acute osseous lesion. Soft tissues are unremarkable. UPPER ABDOMEN: No free air under the diaphragm. IMPRESSION: No acute thoracic abnormality. Signed by: DR. Gallo Sanchez MD on 10/25/2017 3:58 PM Dictated By: GALLO SANCHEZ MD 57 Transcribed By: HALEIGH on 10/25/171557 COPY TO: CHERI ARTEAGA MD FLUORO GUIDANCE [address]/REM [place] [address] Patient Name: SHAY MORALES MR #: [id number] : 1950 Age/Sex: 67/F Req #: [id number] Adm Physician: CHERI ARTEAGA MD Ordered by : BRANDI DOUGLAS MD Report #: [id number] Location: MED/SURG3 Room/Bed: [facility] Procedure: [id number] DX/FLUORO GUIDANCE [address]/REM Exam Date: 10/25/17 Exam Time: 1929 REPORT STATUS: Signed Procedure: Temporary central venous catheter placement. Indication: Need for short-term central venous access. Comparison: None. Discussion: The risks and benefits of the procedure were discussed with the patient. Questions were answered. An informed consent was obtained. The patient was placed supine on the angiographic table. A focused sonographic evaluation of the neck demonstrated a patent and compressible right internal jugular vein. The right neck was prepped and draped in the usual sterile fashion. Utilizing ultrasound guidance, a 21-gauge needle was inserted into the right internal jugular vein. A 0.018 inch wire was advanced centrally under fluoroscopic guidance. An access sheath was placed over the wire to secure the access. The wire was up sized to a 0.035 inch wire. A 0.035 inch wire was advanced into the right atrium and then into the inferior vena cava for stability. A single dilation was performed over the wire. A temporary central venous catheter was advanced over the wire. The wire was removed. The catheter tip of the triple lumen catheter was positioned within the right atrium. The 3 ports demonstrated proper function with aspiration and flush. The lumens were flushed with sterile saline. The lumens were infused with heparin solution. The catheter was secured to the skin with 3-0 Ethilon suture. A sterile dressing was applied. There were no complications and the patient tolerated the procedure well. The patient was transferred to the postprocedure area in stable unchanged condition for further monitoring. Impression: Successful placement of right internal jugular temporary central venous catheter utilizing ultrasound and fluoroscopic guidance. Signed by: Dr. Denisa Nuñez M.D. on 10/28/2017 12:41 PM Dictated By: DENISA NUÑEZ MD 1241 Transcribed By: HALEIGH on 10/28/17 1241 COPY TO: BRANDI DOUGLAS MD GUIDANCE FOR VASCULAR ACCES [place] [address] Patient Name: SHAY MORALES MR #: [id number] : 1950 Age/Sex: 67/F Req #: [id number] Adm Physician: CHERI ARTEAGA MD Ordered by : BRANDI DOUGLAS MD Report #: [id number] Location: MED/SURG3 Room/Bed: [facility] Procedure: [id number] US/US GUIDANCE FOR VASCULAR ACCES Exam Date: 10/25/17 Exam Time: 1859 REPORT STATUS: Signed Procedure: Temporary central venous catheter placement. Indication: Need for short-term central venous access. Comparison: None. Discussion: The risks and benefits of the procedure were discussed with the patient. Questions were answered. An informed consent was obtained. The patient was placed supine on the angiographic table. A focused sonographic evaluation of the neck demonstrated a patent and compressible right internal jugular vein. The right neck was prepped and draped in the usual sterile fashion. Utilizing ultrasound guidance, a 21-gauge needle was inserted into the right internal jugular vein. A 0.018 inch wire was advanced centrally under fluoroscopic guidance. An access sheath was placed over the wire to secure the access. The wire was up sized to a 0.035 inch wire. A 0.035 inch wire was advanced into the right atrium and then into the inferior vena cava for stability. A single dilation was performed over the wire. A temporary central venous catheter was advanced over the wire. The wire was removed. The catheter tip of the triple lumen catheter was positioned within the right atrium. The 3 ports demonstrated proper function with aspiration and flush. The lumens were flushed with sterile saline. The lumens were infused with heparin solution. The catheter was secured to the skin with 3-0 Ethilon suture. A sterile dressing was applied. There were no complications and the patient tolerated the procedure well. The patient was transferred to the postprocedure area in stable unchanged condition for further monitoring. Impression: Successful placement of right internal jugular temporary central venous catheter utilizing ultrasound and fluoroscopic guidance. Signed by: Dr. Denisa Nuñez M.D. on 10/28/2017 12:41 PM Dictated By: DENISA NUÑEZ MD 1241 Transcribed By: HALEIGH on 10/28/17 1241 COPY TO: BRANDI DOUGLAS MD
--- OUTSIDE RECORDS SUMMARY | 2017-11-02 14:37 | XMS REPORT | Continuity of Care Document ---
Author Author [facility] Organization [facility] Address [address] [place] [address] Phone Unavailable Care Team Providers Care Free Lance Artist Name Role Phone MICHAEL REED MD PCP Unavailable Insurance Providers Guarantor Shay Reed Address [address] [place] [address] Email [email or web address] Payer [facility] Policy Number [id number] Subscriber's Name Shay Reed Relationship 18 Self / Same As Patient Effective Date 17 [facility] [facility] Policy Number [id number] Subscriber's Name DerekShay Jorge Relationship 18 Self / Same As Patient Effective Date 17 Advance Directives Directive Response Recorded Date/Time Does the patient have an advance directive? No 10/25/17 2:00am If yes, is advance directive on file with [facility]? No 10/25/17 2:00am If not on file with [facility] will patient provide a copy? No 10/25/17 2:00am Do you have a Directive to Physician? No 10/25/17 12:23am Do you have a Medical Power of Hospitalist Program Director? No 10/25/17 12:23am Do you have an out of hospital Do Not Resuscitate Order? No 10/25/17 12:23am Do you have any special needs we should be aware of? No 10/25/17 12:23am Do you have a support person here with you today? Yes 10/25/17 12:23am Did patient receive Notice of Privacy Practices? Yes 10/25/17 12:23am Did patient receive patient rights and responsibilities? Yes 10/25/17 12:23am Problems Medical Problem Onset Date Status Bacteremia Unknown Diabetes mellitus Unknown Fever Unknown Finger infection Unknown Finger injury Unknown Hypertension Unknown PICC (peripherally inserted central catheter) removal Unknown PICC line infection Unknown Medications Current Home Medications Medication Dose Units Route Directions Days Qty Instructions Start Date Carvedilol 3.125 Mg Tablet 6.25 Mg Oral Daily 60 Tab Insulin Lispro (Humalog) 100 Unit/1 Ml Cartridge 30 Units Subcutaneously Before Breakfast Insulin Lispro (Humalog) 100 Unit/1 Ml Cartridge 25 Units Subcutaneously Bedtime Jenuvia 100 Mg Oral Daily Past Home Medications Medication Directions Ordered Status Iron Bg&Ps/Vit C/B12/Fa/Ca Thr (Salty Forte Capsule) 1 Each Capsule, Oral Daily Discontinued Vancomycin Hcl 1 Gm Vial, 1 Gm Intraven Daily Discontinued Social History Social History Problem Response Recorded Date/Time Onset Date Status Hx Psychiatric Problems Yes 10/25/2017 2:00am Not Applicable Not Applicable Hx Eating Disorder No 10/25/2017 2:00am Not Applicable Not Applicable Hx Substance Use Disorder No 10/25/2017 2:00am Not Applicable Not Applicable Hx Depression Yes 10/25/2017 2:00am Not Applicable Not Applicable Hx Alcohol Use No 10/25/2017 2:00am Not Applicable Not Applicable Hx Substance Use Treatment No 10/25/2017 2:00am Not Applicable Not Applicable Hx Physical Abuse No 10/25/2017 2:00am Not Applicable Not Applicable Smoking Status Start Date Stop Date Never Smoker Hospital Discharge Instructions No hospital discharge instruction information available. Plan of Care Discharge Date 10/31/17 4:36pm Disposition HOME, SELF-CARE Instructions/Education Provided Rash - Nonspecific Prescriptions See Medication Section Additional Instructions/Education FOLLOW UP WITH DR. DOUGLAS IN 1 WEEK. Functional Status Query Response Date Recorded Assistive Devices None October 25, 2017 2:00am Ambulation Ability Independent October 25, 2017 2:00am Toileting Ability Minimum Assistance October 31, 2017 1:58pm Allergies, Adverse Reactions, Alerts No known allergies. Immunizations No immunization information available. Vital Signs Acute Vital Signs Vital Response Date/Time Temperature (Fahrenheit) 96.8 degrees F (97.6 - 99.5) 10/31/2017 4:00pm Pulse Pulse Rate (adult) 73 bpm (60 - 90) 10/31/2017 4:00pm Respiratory Rate 18 bpm (12 - 24) 10/31/2017 4:00pm Blood Pressure 143/72 mm Hg 10/31/2017 4:00pm Height 5 ft 3 in 10/25/2017 2:00am Weight 165.13 lb 10/31/2017 12:37am Body Mass Index 29.3 kg/m^2 10/31/2017 12:37am Results Laboratory Results Test Name Result Units Flags Reference Collection Date/Time Result Date/ Time Comments White Blood Count 13.97 x10e3/uL H 4.8-10.8 10/31/2017 6:20am 2017 7:25am Red Blood Count 3.11 x10e6/uL L 3.6-5.1 10/31/2017 6:2010/31/2017 7: 25am Hemoglobin 9.3 g/dL L 12.0-16.0 10/31/2017 6:2010/31/2017 7:25am Hematocrit 28.3 % L 34.2-44.1 10/31/2017 6:10/31/2017 7:25am Mean Corpuscular Volume 91.0 fL 81-99 10/31/2017 6:2010/31/2017 7: 25am Mean Corpuscular Hemoglobin 29.9 pg 28-32 10/31/2017 6:2010/31/2017 7:25am Mean Corpuscular Hemoglobin Concent 32.9 g/dL 31-35 10/31/2017 6:2010/31/2017 7:25am Red Cell Distribution Width 13.4 % 11.7-14.4 10/31/2017 6:202017 7:25am Platelet Count 253 x10e3/uL 140-360 10/31/2017 6:2010/31/2017 7: 25am Neutrophils (%) (Auto) 63.0 % 38.7-80.0 10/31/2017 6:2010/31/2017 7: 25am Lymphocytes (%) (Auto) 20.4 % 18.0-39.1 10/31/2017 6:20am 10/31/2017 7: 25am Monocytes (%) (Auto) 5.9 % 4.4-11.3 10/31/2017 6:20am 10/31/2017 7: 25am Eosinophils (%) (Auto) 8.2 % H 0.0-6.0 10/31/2017 6:10/31/2017 7: 25am Basophils (%) (Auto) 0.3 % 0.0-1.0 10/31/2017 6:10/31/2017 7:25am IM GRANULOCYTES % 2.2 % H 0.0-1.0 10/31/2017 6:10/31/2017 7:25am Neutrophils # (Auto) 8.8 H 2.1-6.9 10/31/2017 6:10/31/2017 7: 25am Lymphocytes # (Auto) 2.9 1.0-3.2 10/31/2017 6:10/31/2017 7:25am Monocytes # (Auto) 0.8 0.2-0.8 10/31/2017 6:10/31/2017 7:25am Eosinophils # (Auto) 1.2 H 0.0-0.4 10/31/2017 6:10/31/2017 7: 25am Basophils # (Auto) 0.0 0.0-0.1 10/31/2017 6:10/31/2017 7:25am Absolute Immature Granulocyte (auto 0.31 x10e3/uL H 0-0.1 10/31/2017 6: 10/31/2017 7:25am Differential Total Cells Counted 100 10/31/2017 6:am 10/31/2017 10:22am Neutrophils % (Manual) 78 % H 40-74 10/31/2017 6:10/31/2017 10: 22am Band Neutrophils % 1 % 10/29/2017 9:40am 10/29/2017 10:19am Lymphocytes % (Manual) 9 % L 19-48 10/31/2017 6:20am 10/31/2017 10:22am Monocytes % (Manual) 2 % L 3.4-9.0 10/31/2017 6:20am 10/31/2017 10:22am Eosinophils % (Manual) 11 % H 0-7 10/31/2017 6:20am 10/31/2017 10:22am Metamyelocytes % 1 % H 0-0 10/30/2017 11:49am 10/30/2017 1:59pm Myelocytes % 1 % H 0-0 10/30/2017 11:49am 10/30/2017 1:59pm Reactive Lymphocytes 5 10/30/2017 11:49am 10/30/2017 1:59pm Nucleated Red Blood Cells 1 10/30/2017 11:49am 10/30/2017 1:59pm Platelet Estimate ADEQUATE 10/31/2017 6:20am 10/31/2017 10:22am Platelet Morphology Comment NORMAL 10/31/2017 6:20am 10/31/2017 10: 22am Polychromasia FEW 10/27/2017 5:00am 10/27/2017 9:47am Hypochromasia MODERATE 10/30/2017 11:49am 10/30/2017 1:59pm Anisocytosis SLIGHT 10/30/2017 11:49am 10/30/2017 1:59pm Baez-Van Alstyne Bodies FEW 10/27/2017 5:00am 10/27/2017 9:47am Red Cell Morphology Comment NORMAL 10/31/2017 6:20am 10/31/2017 10: 22am Erythrocyte Sedimentation Rate 23 mm/hr H 0-20 10/27/2017 12:25pm 2017 1:17pm Prothrombin Time 16.0 seconds H 11.9-14.5 10/25/2017 4:40pm 10/25/2017 5 :04pm Prothromb Time International Ratio 1.39 10/25/2017 4:40pm 2017 5:04pm Oral Anticoagulant Therapy INR Values: 1. Low Intensity Therapy 1.5 - 2.0 2. Moderate Intensity Therapy 2.0 - 3.0 3. High Intensity Therapy(1) 2.5 - 3.5 4. High Intensity Therapy(2) 3.0 - 4.0 5. Panic Value INR > 5.0 Activated Partial Thromboplast Time 35.8 seconds H 23.8-35.5 10/25/2017 4 :40pm 10/25/2017 5:05pm Urine Color YELLOW YELLOW 10/25/2017 6:10/25/2017 6:40pm Urine Clarity SL CLOUDY CLEAR 10/25/2017 6:10/25/2017 6:40pm Urine Specific Sharon 1.020 1.010-1.025 10/25/2017 6:pm 2017 6:40pm Urine pH 5 5 - 7 10/25/2017 6:pm 10/25/2017 6:40pm Urine Leukocyte Esterase TRACE H NEGATIVE 10/25/2017 6:2017 6:40pm Urine Nitrite NEGATIVE NEGATIVE 10/25/2017 6:pm 10/25/2017 6:40pm Urine Protein 2+ H NEGATIVE 10/25/2017 6:pm 10/25/2017 6:40pm Urine Glucose (UA) NEGATIVE NEGATIVE 10/25/2017 6:pm 10/25/2017 6: 40pm Urine Ketones NEGATIVE NEGATIVE 10/25/2017 6:pm 10/25/2017 6:40pm Urine Urobilinogen 0.2 mg/dL 0.2 - 1 10/25/2017 6:pm 10/25/2017 6: 40pm Urine Bilirubin NEGATIVE NEGATIVE 10/25/2017 6:10/25/2017 6: 40pm Urine Blood 1+ H NEGATIVE 10/25/2017 6:pm 10/25/2017 6:40pm Urine WBC 6-10 /HPF H 0-5 10/25/2017 6:pm 10/25/2017 6:45pm Urine RBC 0-5 /HPF 0-5 10/25/2017 6:10/25/2017 6:45pm Urine Bacteria FEW /HPF NONE 10/25/2017 6:pm 10/25/2017 6:45pm Urine Epithelial Cells MODERATE /LPF NONE 10/25/2017 6:pm 10/25/2017 6:45pm Urine Amorphous Sediment MODERATE H FEW 10/25/2017 6:pm 10/25/2017 6 :45pm Urine Mucus FEW H RARE 10/25/2017 6:26pm 10/25/2017 6:45pm Sodium Level 137 mmol/L 136-145 10/31/2017 6:20am 10/31/2017 8:22am Potassium Level 4.9 mmol/L # 3.5-5.1 10/31/2017 6:2010/31/2017 8:22am Chloride Level 104 mmol/L 98-107 10/31/2017 6:2010/31/2017 8:22am Carbon Dioxide Level 25 mmol/L 22-29 10/31/2017 6:2010/31/2017 8: 22am Anion Gap 12.9 mmol/L 8-16 10/31/2017 6:2010/31/2017 8:22am Blood Urea Nitrogen 31 mg/dL H 7-10/31/2017 6:2010/31/2017 8:22am Creatinine 1.16 mg/dL H 0.57-1.11 10/31/2017 6:2010/31/2017 8:22am BUN/Creatinine Ratio 27 H 6-10/31/2017 6:10/31/2017 8:22am Estimat Glomerular Filtration Rate 47 ML/MIN L 60- 10/31/2017 6:20 8:22am Ranges were taken from the National Kidney Disease Education Program and the National Kid[employer] Foundation literature. Reference ranges: 60 or greater: Normal 16-59 (for 3 consecutive months): Chronic kidney disease 15 or less: Kidney failure Glucose Level 284 mg/dL H 74-118 10/31/2017 6:2010/31/2017 8:22am Calcium Level 8.3 mg/dL L 8.4-10.2 10/31/2017 6:10/31/2017 8:22am Bedside Glucose 254 mg/dL H 70-120 10/31/2017 3:44pm 10/31/2017 3:52pm Meter ID: [id number] Lactic Acid Level 15.9 MG/DL 4.5-19.8 10/25/2017 4:40pm 10/25/2017 5: 10pm Total Bilirubin 0.4 mg/dL 0.2-1.2 10/29/2017 9:40am 10/29/2017 10:11am Aspartate Amino Transf (AST/SGOT) 25 IU/L 5-34 10/29/2017 9:40am 2017 10:11am Alanine Aminotransferase (ALT/SGPT) 44 IU/L 0-55 10/29/2017 9:40am 10:11am Total Protein 6.3 g/dL L 6.5-8.1 10/29/2017 9:40am 10/29/2017 10:11am Albumin 2.9 g/dL L 3.5-5.0 10/29/2017 9:40am 10/29/2017 10:11am Globulin 3.4 g/dL 2.3-3.5 10/29/2017 9:40am 10/29/2017 10:11am Albumin/Globulin Ratio 0.9 0.8-2.0 10/29/2017 9:40am 10/29/2017 10: 11am Alkaline Phosphatase 70 IU/L 40-150 10/29/2017 9:40am 10/29/2017 10: 11am C-Reactive Protein 25.1 mg/L H 0.0-4.9 10/27/2017 12:25pm 10/28/2017 8: 41am Performed at: - [facility] [id number] Lead Tinner: Ehsan Hughes MD, Phone: [phone] Microbiology Results Procedure Source Organism/Result Collection Date/Time Result Date/Time Result Status Blood Culture Blood NO GROWTH AFTER 5 DAYS, FINAL REPORT 10/25/2017 4:40pm 10/30/2017 4:48pm Final [place] [id number] Patient Name: SHAY REED MR # :[id number] : 1950 Age/Sex: 67/F Admit Physician: CHERI ARTEAGA MD Admit Date: 10/25/17 Location/Room/Bed: MED/SURG3- 299-1 Discharge Date: Report: Discharge Summary This is a 67-year-old female with a past medical history positive for hypertension, diabetes, hyperlipidemia. Patient is status post incision and drainage from right hand osteomyelitis. She is on IV vancomycin and ertapenem at home. Apparently she started having swelling and pain in the face and itching and rash all over 1 day before the hospital admission. Patient seems to have an allergic reaction. She is off the antibiotic right now, and Dr. Douglas, infectious disease specialist, has seen the patient from the infectious disease point of view. She thinks that she is allergic to the multivitamin which she just started taking. The PICC line has been removed because of concern about infections. Patient was started on IV antibiotics, which are vancomycin and cefepime. Urine culture has been ordered. Then down the line, the antibiotic was discontinued since there was no evidence of infection in the blood as per Dr. Douglas. Patient is going home today. The blood pressure was very high yesterday. We started Norvasc, and the blood pressure is much better today. She is going home today. Dr. Douglas, infectious disease specialist, has released her to go home also. On the physical exam, the heart shows regular rhythm, normal S1 and S2 sounds. Lungs are clear bilaterally. Abdomen is soft. Extremities show no evidence of cyanosis, edema or trauma. On the vital signs, blood pressure is 151/73. Temperature 96.9. Heart rate 65 per minute. Respiratory rate is 18 per minute. Oxygen saturation is 97%. On blood work, BMP showed sodium 137, potassium 4.9, chloride 104, CO2 25, BUN 31, creatinine 1.16, glucose 284. CBC: White blood count 13.9, hemoglobin 9.3, hematocrit 28.3, platelet count 253,000. PT 16.0, INR 1.39, PTT 35.8. AST 25, AST 44, total bilirubin 0.4, alkaline phosphatase 70. FINAL IMPRESSION 1. Uncontrolled hypertension. 2. Allergic severe reaction apparently to vitamin. 3. Hypertension with hypertensive nephropathy. 4. Diabetes mellitus, type 2, with diabetic nephropathy. 5. Status post hand infection. Patient will continue with: 1. Carvedilol 6.25 mg daily. 2. Norvasc 5 mg daily. 3. Januvia 100 mg daily. 4. Levemir 20 units at bedtime. 5. Continue Levemir 10 units in the morning. Follow up with her primary care physician in a week. Diet: Diabetic and renal diet. JEANNA MATT MD Job#: [id number] MH Dictated By: JEANNA MATT MD Transcribed By: EDS on 10/31/17 <Electronically signed by JEANNA MATT MD>10/31/17 1611 Procedures Procedure Status Date Provider(s) X-ray of chest, two views Active 10/25/17 CHERI ARTEAGA MD MRI upper extremity w/o dye Active 10/25/17 HAROON PATEL MD Ultrasound guidance for vascular access Active 10/25/17 BRANDI DOUGLAS MD Encounters Encounter Location Arrival/Admit Date Discharge/Depart Date Attending Provider Discharged Inpatient [facility] 10/25/17 1:07am 10/31/17 4:36pm CHERI ARTEAGA MD
[2017-11-02] MEDS ORDERED: SODIUM CHLORIDE 0.9% 1000ML 1,000 ML IV STA ×2 (15:08→21:31)
[2017-11-02 15:47] LABS: BASOPHILS # (AUTO) 0.1 (0.0-0.1); BASOPHILS % 0.3 % (0.0-1.0); EOSINOPHILS # (AUTO) 12.3 (0.0-0.4); EOSINOPHILS % 38.7 % (0.0-6.0); HEMATOCRIT 34.2 % (34.2-44.1); HEMOGLOBIN 11.4 g/dL (12.0-16.0); LYMPHOCYTES # (AUTO) 4.1 (1.0-3.2); LYMPHOCYTES % 12.8 % (18.0-39.1); MEAN CORPUSCULAR HEMOGLOBIN 30.2 pg (28-32); MEAN CORPUSCULAR HGB CONC 33.3 g/dL (31-35); MEAN CORPUSCULAR VOLUME 90.7 fL (81-99); MONOCYTES # (AUTO) 0.7 (0.2-0.8); MONOCYTES % 2.3 % (4.4-11.3); NEUTROPHILS # (AUTO) 14.3 (2.1-6.9); NEUTROPHILS % 45.1 % (38.7-80.0); PLATELET COUNT 248 x10e3/uL (140-360); RED BLOOD COUNT 3.77 x10e6/uL (3.6-5.1); RED CELL DISTRIBUTION WIDTH 13.5 % (11.7-14.4)
[2017-11-02 16:02] LABS: ALBUMIN 2.9 g/dL (3.5-5.0); ALBUMIN/GLOBULIN RATIO 0.9 (0.8-2.0); ANION GAP 16.6 mmol/L (8-16); CREATININE, SERUM 2.3 mg/dL (0.57-1.11); POTASSIUM 4.6 mmol/L (3.5-5.1)
--- NOTE | 2017-11-02 16:36 | Diagnostic Imaging Report ---
Examination: CT BRAIN WITHOUT CONTRAST History:Fever. Lethargy. Slurred speech Comparison studies:None Technique: Axial images were obtained from the skull base to the vertex. Coronal and sagittal images reconstructed from the axial data. Intravenous contrast: None Findings: Scalp: No abnormalities. Bones: No fractures, blastic or lytic lesions. Brain sulci: Appropriate for age. Ventricles: Normal in size and configuration. No hydrocephalus. Extra-axial space: No abnormalities. Parenchyma: There are subtle patchy areas of hypoattenuation in the periventricular and subcortical white matter, nonspecific. No masses, hemorrhage, or acute or chronic cortical based vascular insults. Sellar/suprasellar region: No abnormalities. Craniocervical junction: Patent foramen magnum. No Chiari one malformation. Incidental findings: Atherosclerotic calcification of the cavernous and supraclinoid internal carotid arteries. Surgically treated right globe with hyperdense material. Impression: 1. No acute intracranial abnormalities. 2. Mild chronic microvascular ischemic change. Signed by: Dr. Zoë Muir M.D. on 11/02/2017 4:33 PM
[2017-11-02] MEDS ORDERED: PIPER-TAZ 3.375 GM 50 ML IV STA (16:44)
[2017-11-02] MEDS ORDERED: SODIUM CHLORIDE 0.9% 100 ML 100 ML IV ONE (16:45)
--- NOTE | 2017-11-02 17:09 | Diagnostic Imaging Report ---
EXAM: CT Chest WITHOUT contrast 11/02/2017 3:08 PM INDICATION: Fever COMPARISON: Chest radiograph from 10/25/2017 TECHNIQUE: Chest was scanned utilizing a multidetector helical scanner from the lung apex through the level of the adrenal glands without IV contrast. Coronal and sagittal reformations were obtained. Routine protocol was performed. IV CONTRAST: None RADIATION DOSE: Total DLP: 461.33 mGy*cm Estimated effective dose: (DLP x 0.014 x size factor) mSv COMPLICATIONS: None FINDINGS: LINES/ TUBES: None. LUNGS AND AIRWAYS: 5 mm groundglass nodule in the right lung base (series 3, image 29). There are mild scarlike opacities in the right lower lobe. No focal consolidation. The airways are normal. PLEURA: The pleural spaces are clear. HEART AND MEDIASTINUM:No mediastinal or hilar lymphadenopathy. There are mildly enlarged bilateral axillary lymph nodes which measure up to 1.2 cm. The heart is normal in size. No pericardial effusion. Atherosclerotic calcifications of the coronary arteries. The visualized thyroid gland is normal. UPPER ABDOMEN: Limited evaluation of the upper abdomen. There is a 1.3 cm low-attenuation left adrenal nodule (series 2, image 50) BONES: Multilevel degenerative changes of the thoracic spine. SOFT TISSUES: Unremarkable. IMPRESSION: 1. No specific findings to explain the patient's symptoms. 2. 5 mm groundglass nodule in the right lung base. Consider follow-up CT in 3 months to ensure resolution. 3. Mildly enlarged bilateral axillary lymph nodes, measuring up to 1.2 cm. These are nonspecific. 4. 1.3 cm nodule in the left adrenal gland is consistent with a benign adenoma. Brandon Cardenas MD Signed by: Dr. Brandon Cardenas M.D. on 11/02/2017 5:05 PM
--- NOTE | 2017-11-02 17:16 | Diagnostic Imaging Report ---
EXAMINATION: CHEST SINGLE (PORTABLE) 11/02/2017 3:08 PM COMPARISON: 10/25/2017 INDICATION: Fever DISCUSSION: LINES: None. LUNGS: The lungs are well inflated and clear. No pneumonia or pulmonary edema. PLEURA: No pleural effusion or pneumothorax. HEART AND MEDIASTINUM: The cardiomediastinal silhouette is unremarkable. BONES AND SOFT TISSUES: No acute osseous lesion. The soft tissues are normal. IMPRESSION: No acute cardiopulmonary disease. Brandon Cardenas MD Signed by: Dr. Brandon Cardenas M.D. on 11/02/2017 5:13 PM
[2017-11-02] MEDS ORDERED: SODIUM CHLORIDE 0.9% 1000ML 1,000 ML IV ONE (18:45)
[2017-11-02 18:54] LABS: EOSINOPHILS % (MANUAL) 37 % (0-7); LYMPHOCYTES % (MANUAL) 10 % (19-48); MONOCYTES % (MANUAL) 8 % (3.4-9.0); NEUTROPHILS % (MANUAL) 45 % (40-74)
[2017-11-02 18:55] LABS: PLATELET ESTIMATE ADEQUATE; PLATELET MORPHOLOGY COMMENT NORMAL; RBC MORPHOLOGY COMMENT NORMAL
[2017-11-02 19:44] LABS: BILIRUBIN,URINE NEGATIVE (NEGATIVE); KETONES,URINE NEGATIVE (NEGATIVE); LEUKOCYTE ESTERASE ,URINE TRACE (NEGATIVE); NITRITE,URINE NEGATIVE (NEGATIVE); URINE UROBILINOGEN 0.2 mg/dL (0.2 - 1)
[2017-11-02 19:47] LABS: CLARITY,URINE HAZY (CLEAR); COLOR,URINE YELLOW (YELLOW); PROTEIN,URINE DIPSTICK 2+ (NEGATIVE)
[2017-11-02 19:56] LABS: BACTERIA,URINE FEW /HPF; EPITHELIAL CELLS,URINE FEW /LPF; RBC,URINE 0-5 /HPF (0-5)
[2017-11-02] MEDS: SODIUM CHLORIDE 0.9% 1000ML 1,000 ML IV SCH (20:39)
[2017-11-02] MEDS ORDERED: SODIUM CHLORIDE 0.9% 1000ML 1,000 ML ONE (21:27)
[2017-11-02] MEDS ORDERED: ACETAMINOPHEN 1000 MG/100 ML 100 ML IV ONE (21:27)
[2017-11-02] MEDS: ACETAMINOPHEN 1000 MG/100 ML IV PRN (21:45)
[2017-11-02] MEDS ORDERED: DEXTROSE 50% SYRINGE 50 ML IV PRN (22:00)
[2017-11-02] MEDS ORDERED: VANCOMYCIN 1GM/NS 250 ML 250 ML IV SCH (23:00)
[2017-11-02] MEDS ORDERED: MEROPENEM 1 GM VIAL ONE (23:55)
[2017-11-03] MEDS ORDERED: PIPER-TAZ 3.375 GM 50 ML IV SCH
[2017-11-03] MEDS: ACETAMINOPHEN 1000 MG/100 ML IV PRN ×4 (04:41→21:22)
[2017-11-03] MEDS: SODIUM CHLORIDE 0.9% 1000ML 1,000 ML IV SCH ×3 (04:44→19:31)
[2017-11-03 06:10] LABS: BASOPHILS # (AUTO) 0.1 (0.0-0.1); BASOPHILS % 0.3 % (0.0-1.0); EOSINOPHILS # (AUTO) 11.1 (0.0-0.4); EOSINOPHILS % 41.6 % (0.0-6.0); HEMOGLOBIN 9.6 g/dL (12.0-16.0); LYMPHOCYTES # (AUTO) 2.9 (1.0-3.2); LYMPHOCYTES % 10.7 % (18.0-39.1); MEAN CORPUSCULAR HEMOGLOBIN 30.3 pg (28-32); MEAN CORPUSCULAR HGB CONC 33.1 g/dL (31-35); MEAN CORPUSCULAR VOLUME 91.5 fL (81-99); MONOCYTES # (AUTO) 0.7 (0.2-0.8); MONOCYTES % 2.7 % (4.4-11.3); NEUTROPHILS # (AUTO) 11.8 (2.1-6.9); NEUTROPHILS % 44.1 % (38.7-80.0); PLATELET COUNT 204 x10e3/uL (140-360); RED BLOOD COUNT 3.17 x10e6/uL (3.6-5.1); RED CELL DISTRIBUTION WIDTH 13.5 % (11.7-14.4)
[2017-11-03 06:36] LABS: ANION GAP 12.5 mmol/L (8-16); CREATININE, SERUM 1.78 mg/dL (0.57-1.11); POTASSIUM 4.5 mmol/L (3.5-5.1)
[2017-11-03] MEDS: INSULIN REGULAR, HUMAN 100 UNIT/1 ML 3ML VIAL SQ SCH ×4 (07:50→21:20)
[2017-11-03 07:51] LABS: EOSINOPHILS % (MANUAL) 36 % (0-7); LYMPHOCYTES % (MANUAL) 10 % (19-48); MONOCYTES % (MANUAL) 2 % (3.4-9.0); NEUTROPHILS % (MANUAL) 52 % (40-74)
[2017-11-03 07:52] LABS: PLATELET ESTIMATE ADEQUATE; PLATELET MORPHOLOGY COMMENT NORMAL; RBC MORPHOLOGY COMMENT NORMAL
[2017-11-03 07:53] LABS: ANISOCYTOSIS SLIGHT; HYPOCHROMASIA SLIGHT
[2017-11-03 07:56] LABS: POIKILOCYTOSIS SLIGHT
[2017-11-03] MEDS ORDERED: DAPTOMYCIN IV SCH ×2 (08:00)
[2017-11-03] MEDS ORDERED: MEROPENEM 1GRAM 1 GM in SODIUM CHLORIDE 0.9% 100 ML 100 ML IV SCH ×3 (08:00)
[2017-11-03] MEDS ORDERED: SODIUM CHLORIDE 0.9% IV SCH (08:00)
[2017-11-03] MEDS ORDERED: DAPTOMYCIN 300 MG in SODIUM CHLORIDE 0.9% 100 ML IV SCH (08:00)
[2017-11-03] MEDS ORDERED: SODIUM CHLORIDE IV SCH (08:00)
[2017-11-03] MEDS: MEROPENEM 1 GM VIAL IV SCH ×2 (08:20→17:45)
[2017-11-03] MEDS: SODIUM CHLORIDE 0.9% IV SCH (08:30)
[2017-11-03] MEDS: DAPTOMYCIN IV SCH (08:30)
[2017-11-03] MEDS ORDERED: IBUPROFEN 200 MG TAB PO STA (09:41)
[2017-11-03 21:04] VITALS: BP 156/61
[2017-11-04] VITALS (8 sets, daily range): BP systolic 117–168; BP diastolic 52–67
[2017-11-04] MEDS: MEROPENEM 1 GM VIAL IV SCH ×3 (01:42→17:01)
[2017-11-04] MEDS: SODIUM CHLORIDE 0.9% 1000ML 1,000 ML IV SCH ×3 (02:30→17:30)
[2017-11-04] MEDS: ACETAMINOPHEN 325 MG TAB PO PRN ×2 (06:16→14:34)
[2017-11-04] MEDS: INSULIN REGULAR, HUMAN 100 UNIT/1 ML 3ML VIAL SQ SCH ×4 (07:17→21:48)
[2017-11-04] MEDS: CARVEDILOL 3.125 MG TAB PO SCH ×2 (08:41→17:02)
[2017-11-04] MEDS: HYDROXYZINE HCL 10 MG TAB PO SCH ×3 (08:41→21:47)
[2017-11-04] MEDS: SODIUM CHLORIDE 0.9% IV SCH (10:51)
[2017-11-04] MEDS: DAPTOMYCIN IV SCH (10:51)
[2017-11-04] MEDS: VANCOMYCIN 250MG/5ML ORAL SOLN PO SCH ×2 (13:30→17:39)
[2017-11-04] MEDS: INSULIN LISPRO 100 UNIT/1 ML 3ML VIAL SQ SCH (16:30)
[2017-11-04] MEDS: DIPHENOXYLATE/ATROPINE TAB PO PRN (17:02)
[2017-11-04] MEDS ORDERED: INSULIN LISPRO 25 UNIT SC SCH (21:00)
[2017-11-04] MEDS: METHYLPREDNISOLONE SOD SUCC 40 MG/ML VIAL IV SCH (21:47)
[2017-11-05] VITALS (7 sets, daily range): BP systolic 115–166; BP diastolic 52–76
[2017-11-05] MEDS: VANCOMYCIN 250MG/5ML ORAL SOLN PO SCH ×4 (00:02→19:01)
[2017-11-05] MEDS: ACETAMINOPHEN 325 MG TAB PO PRN (00:28)
[2017-11-05] MEDS: MEROPENEM 1 GM VIAL IV SCH ×3 (01:18→19:01)
[2017-11-05] MEDS: SODIUM CHLORIDE 0.9% 1000ML 1,000 ML IV SCH ×3 (01:18→20:50)
[2017-11-05 07:22] LABS: BASOPHILS % 0.3 % (0.0-1.0); EOSINOPHILS # (AUTO) 0.3 (0.0-0.4); EOSINOPHILS % 2.4 % (0.0-6.0); HEMATOCRIT 26.3 % (34.2-44.1); HEMOGLOBIN 8.6 g/dL (12.0-16.0); LYMPHOCYTES # (AUTO) 2.6 (1.0-3.2); LYMPHOCYTES % 21.9 % (18.0-39.1); MEAN CORPUSCULAR HEMOGLOBIN 30.2 pg (28-32); MEAN CORPUSCULAR HGB CONC 32.7 g/dL (31-35); MEAN CORPUSCULAR VOLUME 92.3 fL (81-99); MONOCYTES # (AUTO) 0.2 (0.2-0.8); MONOCYTES % 1.3 % (4.4-11.3); NEUTROPHILS # (AUTO) 8.6 (2.1-6.9); NEUTROPHILS % 73.4 % (38.7-80.0); PLATELET COUNT 196 x10e3/uL (140-360); RED BLOOD COUNT 2.85 x10e6/uL (3.6-5.1)
[2017-11-05] MEDS: INSULIN REGULAR, HUMAN 100 UNIT/1 ML 3ML VIAL SQ SCH ×4 (07:30→20:50)
[2017-11-05] MEDS: INSULIN LISPRO 100 UNIT/1 ML 3ML VIAL SQ SCH ×2 (07:30→16:30)
[2017-11-05 07:46] LABS: CALCIUM 7.5 mg/dL (8.4-10.2); CREATININE, SERUM 1.49 mg/dL (0.57-1.11)
[2017-11-05 09:00] LABS: PLATELET ESTIMATE ADEQUATE; PLATELET MORPHOLOGY COMMENT NORMAL; RBC MORPHOLOGY COMMENT NORMAL
[2017-11-05] MEDS ORDERED: SITAGLIPTIN 100 MG PO SCH (09:00)
[2017-11-05] MEDS: HYDROXYZINE HCL 10 MG TAB PO SCH ×3 (09:22→20:50)
[2017-11-05] MEDS: SITAGLIPTIN 100 MG TAB PO SCH (09:22)
[2017-11-05] MEDS: CARVEDILOL 3.125 MG TAB PO SCH ×2 (09:22→17:54)
[2017-11-05] MEDS: METHYLPREDNISOLONE SOD SUCC 40 MG/ML VIAL IV SCH ×2 (09:22→20:50)
[2017-11-05] MEDS: SODIUM CHLORIDE 0.9% IV SCH (09:50)
[2017-11-05] MEDS: DAPTOMYCIN IV SCH (09:50)
[2017-11-05] MEDS: DIPHENOXYLATE/ATROPINE TAB PO PRN (10:30)
[2017-11-05] MEDS: NYSTATIN 15 GM POWDER UD BTL TOP SCH (17:53)
[2017-11-06] VITALS (9 sets, daily range): BP systolic 138–178; BP diastolic 65–79
[2017-11-06] MEDS: VANCOMYCIN 250MG/5ML ORAL SOLN PO SCH ×4 (00:21→18:01)
[2017-11-06] MEDS: MEROPENEM 1 GM VIAL IV SCH ×3 (00:21→17:36)
[2017-11-06] MEDS: SODIUM CHLORIDE 0.9% 1000ML 1,000 ML IV SCH (04:26)
[2017-11-06 07:10] LABS: BASOPHILS % 0.2 % (0.0-1.0); HEMATOCRIT 25.6 % (34.2-44.1); HEMOGLOBIN 8.3 g/dL (12.0-16.0); LYMPHOCYTES # (AUTO) 3.1 (1.0-3.2); LYMPHOCYTES % 15.7 % (18.0-39.1); MEAN CORPUSCULAR HEMOGLOBIN 29.6 pg (28-32); MEAN CORPUSCULAR HGB CONC 32.4 g/dL (31-35); MEAN CORPUSCULAR VOLUME 91.4 fL (81-99); MONOCYTES # (AUTO) 0.3 (0.2-0.8); MONOCYTES % 1.7 % (4.4-11.3); NEUTROPHILS # (AUTO) 15.9 (2.1-6.9); NEUTROPHILS % 81.4 % (38.7-80.0); PLATELET COUNT 232 x10e3/uL (140-360); RED CELL DISTRIBUTION WIDTH 14.3 % (11.7-14.4)
[2017-11-06] MEDS: INSULIN LISPRO 100 UNIT/1 ML 3ML VIAL SQ SCH ×2 (07:30→16:30)
[2017-11-06] MEDS: INSULIN REGULAR, HUMAN 100 UNIT/1 ML 3ML VIAL SQ SCH ×4 (07:30→20:52)
[2017-11-06 07:52] LABS: ANION GAP 12.4 mmol/L (8-16); CALCIUM 7.9 mg/dL (8.4-10.2); CREATININE, SERUM 1.42 mg/dL (0.57-1.11); POTASSIUM 4.4 mmol/L (3.5-5.1)
[2017-11-06] MEDS: NYSTATIN 15 GM POWDER UD BTL TOP SCH ×2 (09:13→17:36)
[2017-11-06] MEDS: METHYLPREDNISOLONE SOD SUCC 40 MG/ML VIAL IV SCH (09:13)
[2017-11-06] MEDS: SITAGLIPTIN 100 MG TAB PO SCH (09:13)
[2017-11-06] MEDS: HYDROXYZINE HCL 10 MG TAB PO SCH ×3 (09:13→20:52)
[2017-11-06] MEDS: CARVEDILOL 3.125 MG TAB PO SCH ×2 (09:13→17:36)
[2017-11-06 09:14] LABS: BAND NEUTROPHILS % (MANUAL) 2 %; LYMPHOCYTES % (MANUAL) 6 % (19-48); METAMYELOCYTES % (MANUAL) 1 % (0-0); NEUTROPHILS % (MANUAL) 91 % (40-74); PLATELET ESTIMATE ADEQUATE; PLATELET MORPHOLOGY COMMENT NORMAL; RBC MORPHOLOGY COMMENT NORMAL
[2017-11-06 09:15] LABS: ANISOCYTOSIS SLIG; POIKILOCYTOSIS SLIGHT
[2017-11-06] MEDS: SODIUM CHLORIDE 0.9% IV SCH (10:28)
[2017-11-06] MEDS: DAPTOMYCIN IV SCH (10:28)
[2017-11-06] MEDS ORDERED: FUROSEMIDE INJ 10 MG/ML 2 ML VIAL IV NR (12:30)
[2017-11-07] VITALS: BP 166/77
[2017-11-07] MEDS: MEROPENEM 1 GM VIAL IV SCH ×3 (00:10→16:39)
[2017-11-07] MEDS: VANCOMYCIN 250MG/5ML ORAL SOLN PO SCH ×4 (00:10→16:39)
[2017-11-07 04:00] VITALS: BP 163/75
[2017-11-07 08:18] LABS: BASOPHILS % 0.2 % (0.0-1.0); EOSINOPHILS # (AUTO) 0.1 (0.0-0.4); EOSINOPHILS % 0.3 % (0.0-6.0); HEMATOCRIT 24.4 % (34.2-44.1); LYMPHOCYTES # (AUTO) 3.2 (1.0-3.2); LYMPHOCYTES % 18.3 % (18.0-39.1); MEAN CORPUSCULAR HEMOGLOBIN 29.5 pg (28-32); MEAN CORPUSCULAR HGB CONC 32.8 g/dL (31-35); MONOCYTES % 5.8 % (4.4-11.3); NEUTROPHILS # (AUTO) 12.9 (2.1-6.9); NEUTROPHILS % 73.6 % (38.7-80.0); PLATELET COUNT 230 x10e3/uL (140-360); RED BLOOD COUNT 2.71 x10e6/uL (3.6-5.1); RED CELL DISTRIBUTION WIDTH 14.7 % (11.7-14.4)
[2017-11-07 08:39] LABS: ALBUMIN 2.3 g/dL (3.5-5.0); ALBUMIN/GLOBULIN RATIO 0.9 (0.8-2.0); ANION GAP 12.1 mmol/L (8-16); CREATININE, SERUM 1.26 mg/dL (0.57-1.11); MAGNESIUM 1.5 MG/DL (1.3-2.1); POTASSIUM 4.1 mmol/L (3.5-5.1)
[2017-11-07] MEDS: HYDROXYZINE HCL 10 MG TAB PO SCH ×3 (08:57→20:58)
[2017-11-07] MEDS: SITAGLIPTIN 100 MG TAB PO SCH (08:58)
[2017-11-07] MEDS: PREDNISONE 20 MG TAB PO SCH (08:58)
[2017-11-07] MEDS: CARVEDILOL 3.125 MG TAB PO SCH (08:58)
[2017-11-07] MEDS: NYSTATIN 15 GM POWDER UD BTL TOP SCH ×2 (08:58→16:39)
[2017-11-07] MEDS: INSULIN LISPRO 100 UNIT/1 ML 3ML VIAL SQ SCH ×2 (09:32→17:02)
[2017-11-07] MEDS: INSULIN REGULAR, HUMAN 100 UNIT/1 ML 3ML VIAL SQ SCH ×4 (09:33→20:58)
[2017-11-07 10:04] VITALS: BP 184/20
[2017-11-07 10:22] LABS: THYROID STIMULATING HORMONE 1.831 uIU/mL (0.350-4.940)
[2017-11-07 10:57] LABS: BAND NEUTROPHILS % (MANUAL) 1 %; LYMPHOCYTES % (MANUAL) 10 % (19-48); MONOCYTES % (MANUAL) 3 % (3.4-9.0); NEUTROPHILS % (MANUAL) 82 % (40-74)
[2017-11-07 10:58] LABS: ANISOCYTOSIS MARKED; HYPOCHROMASIA SLIGHT; PLATELET ESTIMATE ADEQUATE; PLATELET MORPHOLOGY COMMENT NORMAL; RBC MORPHOLOGY COMMENT NORMAL; SMUDGE CELLS FEW
[2017-11-07 13:26] VITALS: BP 173/95
[2017-11-07 16:29] VITALS: BP 213/111
[2017-11-07] MEDS: CARVEDILOL 12.5 MG TAB PO SCH (16:39)
[2017-11-07] MEDS ORDERED: CLONIDINE HCL 0.1 MG TAB PO ONE (17:05)
[2017-11-07] MEDS ORDERED: CLONIDINE HCL 0.1 MG TAB PO STA (18:13)
[2017-11-07 20:00] VITALS: BP 192/82
[2017-11-07] MEDS ORDERED: AMLODIPINE BESYLATE 5 MG TAB PO ONE (21:15)
[2017-11-08] VITALS: BP 166/72
[2017-11-08] MEDS: MEROPENEM 1 GM VIAL IV SCH ×3 (00:34→17:25)
[2017-11-08] MEDS: VANCOMYCIN 250MG/5ML ORAL SOLN PO SCH ×5 (00:34→23:49)
[2017-11-08 02:14] VITALS: BP 166/72
[2017-11-08 04:00] VITALS: BP 185/88
[2017-11-08] MEDS: INSULIN REGULAR, HUMAN 100 UNIT/1 ML 3ML VIAL SQ SCH ×4 (09:33→21:00)
[2017-11-08] MEDS: HYDROXYZINE HCL 10 MG TAB PO SCH ×3 (09:33→21:15)
[2017-11-08] MEDS: INSULIN LISPRO 100 UNIT/1 ML 3ML VIAL SQ SCH ×2 (09:33→17:26)
[2017-11-08] MEDS: PREDNISONE 20 MG TAB PO SCH (09:34)
[2017-11-08] MEDS: SITAGLIPTIN 100 MG TAB PO SCH (09:34)
[2017-11-08] MEDS: CARVEDILOL 12.5 MG TAB PO SCH ×2 (09:34→17:25)
[2017-11-08] MEDS: NYSTATIN 15 GM POWDER UD BTL TOP SCH ×2 (09:34→17:08)
[2017-11-08] MEDS: AMLODIPINE BESYLATE 5 MG TAB PO SCH (09:34)
[2017-11-08 11:11] VITALS: BP 201/99
[2017-11-08] MEDS: HYDROCORTISONE 2.5% PR CRM 1 OZ TUBE PR SCH ×2 (12:20→17:08)
[2017-11-08] MEDS: ACETAMINOPHEN 325 MG TAB PO PRN (14:19)
--- NOTE | 2017-11-08 16:27 | Diagnostic Imaging Report ---
EXAMINATION: CHEST SINGLE (PORTABLE) INDICATION: \S\fever and leukocytosis \[id number] \S\1535 \S\Y COMPARISON: Chest radiograph from 11/02/2017 FINDINGS: AP view TUBES and LINES: None. LUNGS: Low lung volumes. Increased airspace opacity in the right cardiophrenic angle with worsening volume loss. The left lung is clear PLEURA: No pleural effusion or pneumothorax. HEART AND MEDIASTINUM: The cardiomediastinal silhouette is unremarkable.. BONES AND SOFT TISSUES: No acute osseous lesion. Soft tissues are unremarkable. UPPER ABDOMEN: No free air under the diaphragm. IMPRESSION: Worsening right lower lobe consolidation suggestive of pneumonia. Recommend follow-up chest radiograph in 4-6 weeks. Signed by: Dr. Chika Luciano M.D. on 11/08/2017 4:24 PM
[2017-11-08 20:00] VITALS: BP 164/71
[2017-11-09] VITALS: BP 172/79
[2017-11-09] MEDS: MEROPENEM 1 GM VIAL IV SCH ×3 (00:15→17:18)
[2017-11-09 04:00] VITALS: BP 208/93
[2017-11-09 05:51] VITALS: BP 172/79
[2017-11-09] MEDS: AMLODIPINE BESYLATE 5 MG TAB PO SCH (06:15)
[2017-11-09] MEDS: VANCOMYCIN 250MG/5ML ORAL SOLN PO SCH ×2 (06:20→11:51)
[2017-11-09 07:20] LABS: BASOPHILS % 0.3 % (0.0-1.0); EOSINOPHILS # (AUTO) 2.7 (0.0-0.4); EOSINOPHILS % 23.1 % (0.0-6.0); HEMATOCRIT 23.4 % (34.2-44.1); LYMPHOCYTES # (AUTO) 2.6 (1.0-3.2); LYMPHOCYTES % 21.9 % (18.0-39.1); MEAN CORPUSCULAR HEMOGLOBIN 30.1 pg (28-32); MEAN CORPUSCULAR HGB CONC 33.3 g/dL (31-35); MEAN CORPUSCULAR VOLUME 90.3 fL (81-99); MONOCYTES # (AUTO) 0.7 (0.2-0.8); MONOCYTES % 5.5 % (4.4-11.3); NEUTROPHILS # (AUTO) 5.6 (2.1-6.9); NEUTROPHILS % 47.7 % (38.7-80.0); PLATELET COUNT 205 x10e3/uL (140-360); RED BLOOD COUNT 2.59 x10e6/uL (3.6-5.1); RED CELL DISTRIBUTION WIDTH 14.9 % (11.7-14.4)
[2017-11-09 07:23] LABS: HEMOGLOBIN 7.8 g/dL (12.0-16.0)
[2017-11-09] MEDS ORDERED: BISACODYL 10 MG SUPP PR ONE (07:45)
[2017-11-09 07:47] LABS: ALANINE AMINOTRANSFERASE 89 IU/L (0-55); ALBUMIN 2.4 g/dL (3.5-5.0); ALBUMIN/GLOBULIN RATIO 0.9 (0.8-2.0); ALKALINE PHOSPHATASE 83 IU/L (40-150); ANION GAP 11.1 mmol/L (8-16); BLOOD UREA NITROGEN 27 mg/dL (7-26); BUN/CREATININE RATIO 30 (6-25); CALCIUM 7.9 mg/dL (8.4-10.2); CARBON DIOXIDE 19 mmol/L (22-29); CHLORIDE 110 mmol/L (98-107); CREATININE, SERUM 0.91 mg/dL (0.57-1.11); EST GLOMERULAR FILTRATION RATE > 60 ML/MIN (60-); GLUCOSE 185 mg/dL (74-118); POTASSIUM 4.1 mmol/L (3.5-5.1); SODIUM 136 mmol/L (136-145)
[2017-11-09] MEDS: SITAGLIPTIN 100 MG TAB PO SCH (09:00)
[2017-11-09] MEDS: HYDROCORTISONE 2.5% PR CRM 1 OZ TUBE PR SCH ×2 (09:00→17:19)
[2017-11-09] MEDS: CARVEDILOL 12.5 MG TAB PO SCH ×2 (09:00→17:19)
[2017-11-09] MEDS: INSULIN REGULAR, HUMAN 100 UNIT/1 ML 3ML VIAL SQ SCH ×4 (09:00→21:10)
[2017-11-09] MEDS: HYDROXYZINE HCL 10 MG TAB PO SCH ×3 (09:00→21:00)
[2017-11-09] MEDS: PREDNISONE 20 MG TAB PO SCH (09:00)
[2017-11-09] MEDS: INSULIN LISPRO 100 UNIT/1 ML 3ML VIAL SQ SCH ×2 (09:00→17:18)
[2017-11-09] MEDS: NYSTATIN 15 GM POWDER UD BTL TOP SCH ×2 (09:00→17:19)
[2017-11-09] MEDS: ACETAMINOPHEN 325 MG TAB PO PRN (11:51)
[2017-11-09 12:11] LABS: BAND NEUTROPHILS % (MANUAL) 2 %; EOSINOPHILS % (MANUAL) 24 % (0-7); LYMPHOCYTES % (MANUAL) 11 % (19-48); MONOCYTES % (MANUAL) 4 % (3.4-9.0); NEUTROPHILS % (MANUAL) 59 % (40-74); PLATELET ESTIMATE ADEQUATE; PLATELET MORPHOLOGY COMMENT NORMAL; RBC MORPHOLOGY COMMENT NORMAL
[2017-11-09 12:34] VITALS: BP 166/81
[2017-11-09] MEDS ORDERED: PANTOPRAZOLE 40 MG 10ML VIAL IV NR (14:30)
[2017-11-09] MEDS: VANCOMYCIN 1GM/NS 250 ML 250 ML IV SCH (15:10)
[2017-11-09 17:37] VITALS: BP 153/77
[2017-11-09] MEDS ORDERED: DIPHENHYDRAMINE HCL INJ 50 MG/ML VIAL IV PRN (18:30)
[2017-11-09 20:00] VITALS: BP 188/78
[2017-11-09] MEDS ORDERED: HYDROCODONE/APAP 5MG-325MG TAB PO PRN (20:00)
[2017-11-09] MEDS: NYSTATIN/TRIAMCINOLONE 15 GM CR TOP SCH (21:50)
[2017-11-10] VITALS (8 sets, daily range): BP systolic 127–201; BP diastolic 60–88
[2017-11-10] MEDS: MEROPENEM 1 GM VIAL IV SCH ×3 (00:49→16:23)
[2017-11-10] MEDS: VANCOMYCIN 1GM/NS 250 ML 250 ML IV SCH ×2 (02:10→16:23)
[2017-11-10 07:19] LABS: BASOPHILS % 0.2 % (0.0-1.0); EOSINOPHILS % 22.4 % (0.0-6.0); HEMATOCRIT 23.6 % (34.2-44.1); LYMPHOCYTES # (AUTO) 1.2 (1.0-3.2); LYMPHOCYTES % 13.6 % (18.0-39.1); MEAN CORPUSCULAR HEMOGLOBIN 29.5 pg (28-32); MEAN CORPUSCULAR HGB CONC 32.2 g/dL (31-35); MEAN CORPUSCULAR VOLUME 91.5 fL (81-99); MONOCYTES # (AUTO) 0.3 (0.2-0.8); MONOCYTES % 3.2 % (4.4-11.3); NEUTROPHILS # (AUTO) 5.4 (2.1-6.9); PLATELET COUNT 195 x10e3/uL (140-360); RED BLOOD COUNT 2.58 x10e6/uL (3.6-5.1); RED CELL DISTRIBUTION WIDTH 14.9 % (11.7-14.4)
[2017-11-10] MEDS: INSULIN REGULAR, HUMAN 100 UNIT/1 ML 3ML VIAL SQ SCH ×3 (07:30→16:23)
[2017-11-10] MEDS: INSULIN LISPRO 100 UNIT/1 ML 3ML VIAL SQ SCH ×2 (07:30→16:23)
[2017-11-10 07:37] LABS: BLOOD UREA NITROGEN 21 mg/dL (7-26); BUN/CREATININE RATIO 23 (6-25); CALCIUM 7.9 mg/dL (8.4-10.2); CARBON DIOXIDE 22 mmol/L (22-29); CHLORIDE 106 mmol/L (98-107); EST GLOMERULAR FILTRATION RATE > 60 ML/MIN (60-); GLUCOSE 137 mg/dL (74-118); SODIUM 135 mmol/L (136-145)
[2017-11-10 07:38] LABS: HEMOGLOBIN 7.6 g/dL (12.0-16.0)
[2017-11-10] MEDS: HYDROXYZINE HCL 10 MG TAB PO SCH ×3 (08:19→20:35)
[2017-11-10] MEDS: PANTOPRAZOLE 40 MG 10ML VIAL IV SCH (08:19)
[2017-11-10] MEDS: PREDNISONE 20 MG TAB PO SCH (08:20)
[2017-11-10] MEDS: SITAGLIPTIN 100 MG TAB PO SCH (08:20)
[2017-11-10] MEDS: HYDROCORTISONE 2.5% PR CRM 1 OZ TUBE PR SCH ×2 (08:20→17:55)
[2017-11-10] MEDS: CARVEDILOL 12.5 MG TAB PO SCH ×2 (08:20→16:23)
[2017-11-10] MEDS: AMLODIPINE BESYLATE 5 MG TAB PO SCH (08:20)
[2017-11-10] MEDS ORDERED: NYSTATIN/TRIAMCINOLONE 15 GM CR TOP SCH (09:00)
[2017-11-10] MEDS ORDERED: FENTANYL CITRATE/PF 100MCG/2 ML INJ ONE (13:54)
[2017-11-10] MEDS ORDERED: MIDAZOLAM HCL 2 MG/2 ML VIAL ONE (13:54)
--- NOTE | 2017-11-10 14:02 | Operative Report ---
DATE OF PROCEDURE: November 10, 2017 REFERRING PHYSICIAN: Dr. Fabian Locke. PROCEDURE PERFORMED: Esophagogastroduodenoscopy with biopsies. INDICATIONS FOR EGD: Anemia, guaiac-positive stools. MEDICATIONS: Patient was done under MAC. Please see anesthesiologist's note. PROCEDURE: With patient in lateral decubitus position, flexible fiberoptic Olympus gastroscope was introduced into the esophagus under direct visualization without any difficulty. An AVM was encountered in the mid esophagus without active bleeding or stigmata of recent hemorrhage. The distal esophageal mucosa was ulcerated. The scope was then advanced with ease into the stomach traversing a small sliding hiatal hernia. Mucosa overlying the body appeared somewhat atrophic and biopsies were obtained to rule out atrophic gastritis. An approximately 5 mm nodule was noted in the mid body along the posterior wall and that was biopsied. The mucosa overlying the antrum revealed some patchy intense erythema and moderate edema and biopsies were obtained and sent to stain for H. pylori. The pylorus was of normal contour and shape, was intubated with ease, and the scope was advanced all the way to the second portion of the duodenum. The scope was then withdrawn slowly. Mucosa overlying the proximal second portion and the duodenal bulb appeared to be within normal limits. The scope was then withdrawn back into the stomach and retroflexed and mucosa overlying the fundus and the cardia appeared to be within normal limits. The scope was then straightened out. The scope was subsequently withdrawn. Patient tolerated the procedure well. IMPRESSION 1. 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 2. Distal ulcerative esophagitis. 3. Small sliding hiatal hernia. 1. Rule out atrophic gastritis body. 2. Approximately 5 mm nodule mid body posterior wall, biopsied. 3. Gastritis, antrum, biopsied. Biopsies sent to stain for H. pylori. PLAN: Followup histology. Initiate Protonix 40 mg 1 p.o. q.a.m a.c. Job#: [id number] [facility] cc:Dr. Fabian Locke
[2017-11-10] MEDS: NYSTATIN/TRIAMCINOLONE 15 GM CR TOP SCH ×2 (15:31→20:35)
[2017-11-10] MEDS ORDERED: LIDOCAINE HCL 2% LOCAL INJ 5 ML SDV VIAL INJ ONE (17:43)
[2017-11-10] MEDS ORDERED: PROPOFOL IV EMULSION 10 MG/ML 50 ML VIAL ONE (17:43)
[2017-11-10] MEDS: ACETAMINOPHEN 325 MG TAB PO PRN ×2 (17:55→20:32)
[2017-11-11] VITALS (9 sets, daily range): BP systolic 119–209; BP diastolic 56–88
[2017-11-11] MEDS: MEROPENEM 1 GM VIAL IV SCH ×3 (00:48→18:30)
[2017-11-11] MEDS: VANCOMYCIN 1GM/NS 250 ML 250 ML IV SCH ×2 (01:27→13:15)
[2017-11-11] MEDS: INSULIN REGULAR, HUMAN 100 UNIT/1 ML 3ML VIAL SQ SCH ×5 (03:16→22:55)
[2017-11-11] MEDS: AMLODIPINE BESYLATE 5 MG TAB PO SCH (04:13)
[2017-11-11] MEDS: HYDROXYZINE HCL 10 MG TAB PO SCH ×3 (09:41→21:00)
[2017-11-11] MEDS: PANTOPRAZOLE 40 MG 10ML VIAL IV SCH (09:41)
[2017-11-11] MEDS: CARVEDILOL 12.5 MG TAB PO SCH ×2 (09:42→18:30)
[2017-11-11] MEDS: SITAGLIPTIN 100 MG TAB PO SCH (09:42)
[2017-11-11] MEDS: PREDNISONE 20 MG TAB PO SCH (09:42)
[2017-11-11] MEDS: HYDROCORTISONE 2.5% PR CRM 1 OZ TUBE PR SCH ×2 (09:42→18:30)
[2017-11-11] MEDS: NYSTATIN/TRIAMCINOLONE 15 GM CR TOP SCH ×2 (09:42→21:00)
[2017-11-11] MEDS: INSULIN LISPRO 100 UNIT/1 ML 3ML VIAL SQ SCH ×2 (09:47→16:30)
[2017-11-11 10:24] LABS: EOSINOPHILS # (AUTO) 3.1 (0.0-0.4); EOSINOPHILS % 39.2 % (0.0-6.0); LYMPHOCYTES # (AUTO) 0.8 (1.0-3.2); LYMPHOCYTES % 10.5 % (18.0-39.1); MEAN CORPUSCULAR HEMOGLOBIN 30.4 pg (28-32); MEAN CORPUSCULAR HGB CONC 33.5 g/dL (31-35); MEAN CORPUSCULAR VOLUME 90.7 fL (81-99); MONOCYTES # (AUTO) 0.2 (0.2-0.8); MONOCYTES % 2.1 % (4.4-11.3); NEUTROPHILS # (AUTO) 3.8 (2.1-6.9); NEUTROPHILS % 47.6 % (38.7-80.0); PLATELET COUNT 146 x10e3/uL (140-360); RED BLOOD COUNT 2.47 x10e6/uL (3.6-5.1)
[2017-11-11 10:33] LABS: HEMATOCRIT 22.4 % (34.2-44.1); HEMOGLOBIN 7.5 g/dL (12.0-16.0)
[2017-11-11 12:10] LABS: BLAST CELLS % MANUAL 2; EOSINOPHILS % (MANUAL) 25 % (0-7); LYMPHOCYTES % (MANUAL) 17 % (19-48); METAMYELOCYTES % (MANUAL) 1 % (0-0); MONOCYTES % (MANUAL) 3 % (3.4-9.0); NEUTROPHILS % (MANUAL) 49 % (40-74)
[2017-11-11 12:11] LABS: ANISOCYTOSIS SLIGHT; HYPOCHROMASIA MODERATE; PLATELET ESTIMATE SLIGHTLY DECREASED; PLATELET MORPHOLOGY COMMENT FEW LARGE; RBC MORPHOLOGY COMMENT NORMAL
[2017-11-11] MEDS ORDERED: SODIUM CHLORIDE 0.9% 50ML 50 ML ONE (12:58)
[2017-11-11] MEDS ORDERED: IOPAMIDOL 370 MG/ML 200 ML INFUS..BTL INJ ONE (12:59)
--- NOTE | 2017-11-11 14:25 | Diagnostic Imaging Report ---
PROCEDURE: CT scan of the chest WITH intravenous contrast, using standard protocol. TECHNIQUE: The chest was scanned utilizing a multidetector helical scanner from the lung apex through the level of the adrenal glands after the IV administration of 100 cc of Isovue 370. Coronal and sagittal multiplanar reformations were obtained. COMPARISON: [facility], CT, CT CHEST WO, 11/02/2017, 16:08. INDICATIONS: SEPSIS, ABSCESS FINDINGS: Lines/tubes: None. Lungs and Airways: Intralobular septal thickening and bilateral mild interstitial groundglass opacities adjacent to the valencia. Mild compressive atelectasis of bilateral lower lobes, right greater than left. Subsegmental atelectasis versus scarring in the right middle lobe and atelectatic changes in the lateral right lower lobe secondary to eventration of the right hemidiaphragm. 4 mm pulmonary nodule in the lateral left upper lobe (series 4, image 51), which is not seen on prior exam. Focal 7-8 mm groundglass opacity in the lateral left upper lobe (series 4, image 47). No consolidation. Airways are clear, without endobronchial lesions. Pleura: Interval development of trace left and small right pleural effusions. Heart and mediastinum: Thyroid is unremarkable. Heart size is normal. No pericardial effusion. Aorta is non-aneurysmal. Main pulmonary arteries normal in caliber. Lymph nodes: No mediastinal, hilar, or axillary adenopathy. Abdomen: See CT abdomen and pelvis performed same date for further detail. Bones: No aggressive lytic lesion. Mild soft tissue edema. IMPRESSION: 1. findings suggestive of mild interstitial edema /fluid overload. 2. Interval development of trace left and small right pleural effusions with associated compressive atelectasis of the lower lobes. 3. Near 4 mm pulmonary nodule and new focal 7 mm groundglass opacity in the lateral left upper lobe, which may represent infection or inflammation or edema. Bulmaro Boss M.D. Dictated by: Bulmaro Boss M.D. on 11/11/2017 at 14:25 Electronically approved by: Bulmaro Boss M.D. on 11/11/2017 at 14:25
--- NOTE | 2017-11-11 14:49 | Diagnostic Imaging Report ---
PROCEDURE: CT ABDOMEN AND PELVIS WITH CONTRAST TECHNIQUE: The abdomen and pelvis were scanned utilizing a multidetector helical scanner from the diaphragm to the lesser trochanter after the IV administration of 100 cc of Isovue 370 and the oral administration of water. Coronal and sagittal multiplanar reformations were obtained. COMPARISON: None. INDICATIONS: SEPSIS FINDINGS: LOWER THORAX: Please see CT chest performed same day for further detail.. HEPATOBILIARY: No focal hepatic lesions. No biliary ductal dilatation. The gallbladder is unremarkable. SPLEEN: No splenomegaly. PANCREAS: No focal masses or ductal dilatation. ADRENALS: Stable 1.6 x 1.1 cm nodule in the left adrenal gland (series 2, image 48), which measure less than 10 Hounsfield units on prior noncontrast CT chest dated 11/02/2017. Right adrenal gland is unremarkable. KIDNEYS/URETERS: No hydronephrosis, stones, or solid mass lesions. 6 mm hypodense lesion in the anterior mid to inferior left kidney (series 2, image 61), which is too small to characterize but likely represents a small cyst. Cortical scarring in the inferior pole of the left kidney (coronal image 62) and superior pole of the right kidney (coronal image 68).. BLADDER/PELVIC OIRGANS: Bladder is unremarkable. Uterus is unremarkable. No adnexal masses. PERITONEUM / RETROPERITONEUM: No free air or fluid. No well-defined fluid collections. LYMPH NODES: No lymphadenopathy. VESSELS: Unremarkable. GI TRACT: No bowel dilation or evidence of obstruction. No pericolonic inflammatory changes. Moderate amount of retained stool in the distal sigmoid colon and rectum. BONES AND SOFT TISSUES: No aggressive lytic lesion. Single 1.3 x 0.7 x 0.7 cm lucent lesion in the L3 vertebral body (sagittal image 84 and series 2 image 73), with questionable prominent trabecula. Moderate generalized soft tissue edema. IMPRESSION: 1. moderate, generalized soft tissue edema. No acute intra-abdominal abnormalities, free fluid or well-defined fluid collections. 2. Stable 1.6 cm benign, lipid rich left adrenal adenoma. No further diagnostic imaging is indicated. 3. 1.3 cm solitary lucent lesion in the L3 vertebral body probably represents a hemangioma. Metastatic lesion is much less likely, however, could be considered if there is prior history of malignancy. Bulmaro Boss M.D. Dictated by: Bulmaro Boss M.D. on 11/11/2017 at 14:49 Electronically approved by: Bulmaro Boss M.D. on 11/11/2017 at 14:49
[2017-11-11] MEDS ORDERED: SODIUM CHLORIDE 0.9% 250ML 250 ML IV ONE (17:15)
[2017-11-11] MEDS ORDERED: FUROSEMIDE INJ 10 MG/ML 2 ML VIAL IV PRN (17:15)
[2017-11-11] MEDS ORDERED: SODIUM CHLORIDE 0.9% 1000ML 1,000 ML ONE (20:52)
[2017-11-12 00:17] VITALS: BP 157/70
[2017-11-12] MEDS ORDERED: CYANOCOBALAMIN INJ 1,000 MCG/ML VIAL IM ONE (00:30)
[2017-11-12] MEDS: VANCOMYCIN 1GM/NS 250 ML 250 ML IV SCH ×2 (01:15→13:15)
[2017-11-12] MEDS: MEROPENEM 1 GM VIAL IV SCH ×3 (03:46→17:00)
[2017-11-12 05:17] VITALS: BP 143/71
[2017-11-12 07:20] VITALS: BP 174/74
[2017-11-12 07:34] VITALS: BP 174/74
[2017-11-12] MEDS: INSULIN REGULAR, HUMAN 100 UNIT/1 ML 3ML VIAL SQ SCH ×3 (08:30→16:30)
[2017-11-12] MEDS: INSULIN LISPRO 100 UNIT/1 ML 3ML VIAL SQ SCH ×2 (08:30→16:30)
[2017-11-12] MEDS: PANTOPRAZOLE 40 MG 10ML VIAL IV SCH (09:00)
[2017-11-12] MEDS: SITAGLIPTIN 100 MG TAB PO SCH (09:00)
[2017-11-12] MEDS: HYDROCORTISONE 2.5% PR CRM 1 OZ TUBE PR SCH ×2 (09:00→17:00)
[2017-11-12] MEDS: CARVEDILOL 12.5 MG TAB PO SCH ×2 (09:00→17:00)
[2017-11-12] MEDS: PREDNISONE 20 MG TAB PO SCH (09:00)
[2017-11-12] MEDS: HYDROXYZINE HCL 10 MG TAB PO SCH ×2 (09:00→15:00)
[2017-11-12] MEDS: AMLODIPINE BESYLATE 5 MG TAB PO SCH (09:00)
[2017-11-12] MEDS: NYSTATIN/TRIAMCINOLONE 15 GM CR TOP SCH (10:00)
[2017-11-12 11:56] VITALS: BP 161/74
[2017-11-12 13:01] LABS: BASOPHILS % 0.2 % (0.0-1.0); EOSINOPHILS % 0.6 % (0.0-6.0); HEMATOCRIT 29.9 % (34.2-44.1); HEMOGLOBIN 9.9 g/dL (12.0-16.0); LYMPHOCYTES # (AUTO) 0.8 (1.0-3.2); LYMPHOCYTES % 15.4 % (18.0-39.1); MEAN CORPUSCULAR HEMOGLOBIN 30.5 pg (28-32); MEAN CORPUSCULAR HGB CONC 33.1 g/dL (31-35); MONOCYTES # (AUTO) 0.2 (0.2-0.8); MONOCYTES % 4.3 % (4.4-11.3); NEUTROPHILS # (AUTO) 3.8 (2.1-6.9); NEUTROPHILS % 77.9 % (38.7-80.0); PLATELET COUNT 141 x10e3/uL (140-360); RED BLOOD COUNT 3.25 x10e6/uL (3.6-5.1); RED CELL DISTRIBUTION WIDTH 15.4 % (11.7-14.4)
[2017-11-18] MEDS ORDERED: CYANOCOBALAMIN INJ 1,000 MCG/ML VIAL IM SCH (21:00)
== END 2017-11-12 17:45 | disposition home health service (06) | DRG 871 ==
LOC: ER 14:34 → ERHOLD 17:58 → IMCU 11-03 20:39 → MED/SURG3 11-04 11:16
PROC: 0DB68ZX Excision of Stomach, Via Natural or Artificial Opening Endoscopic, Diagnostic (ICD-10-PCS; 2017-11-10)
PROC: 0DB78ZX Excision of Stomach, Pylorus, Via Natural or Artificial Opening Endoscopic, Diagnostic (ICD-10-PCS; principal; 2017-11-10 11:30)
PROC: 30233N1 Transfusion of Nonautologous Red Blood Cells into Peripheral Vein, Percutaneous Approach (ICD-10-PCS; 2017-11-11)
DX: A41.9 Sepsis, unspecified organism (principal); J18.9 Pneumonia, unspecified organism; N17.9 Acute kidney failure, unspecified; E11.22 Type 2 diabetes mellitus with diabetic chronic kidney disease; N18.3 Chronic kidney disease, stage 3 (moderate); K22.10 Ulcer of esophagus without bleeding; B37.2 Candidiasis of skin and nail; N39.0 Urinary tract infection, site not specified; K29.40 Chronic atrophic gastritis without bleeding; K44.9 Diaphragmatic hernia without obstruction or gangrene; K64.9 Unspecified hemorrhoids; D50.9 Iron deficiency anemia, unspecified; K59.09 Other constipation; Q27.33 Arteriovenous malformation of digestive system vessel; Z79.4 Long term (current) use of insulin; I12.9 Hypertensive chronic kidney disease with stage 1 through stage 4 chronic kidney disease, or unspecified chronic kidney disease; R53.81 Other malaise
CPT/HCPCS: 36415; 36430; 43239; 51700; 70450; 71045; 71250; 71260; 74177; 80048; 80053; 80202; 81001; 82270; 82607; 82948; 83540; 83605; 83735; 84443; 84466; 85025; 85045; 86021; 86039; 86431; 86850; 86900; 86920; 87040; 87086; 87493; 88305; 88312; 93005; 93306; 96361; 96365; 96367; 96372; 96374; 99285; J1200; J1940; J2001; J2185; J2250; J2543; J2920; J3370; J3410; J3420; J7030; J7050; J7799; P9016; Q9967